=== PATIENT | female | born 1985 | race Caucasian/White ===

== ENCOUNTER 2016-08-08 15:59 | Emergency (ER) | payer MEDICAID, MEDICARE ==
[2016-08-08] MEDS ORDERED: Sodium Chloride 0.9% 10 ML Syringe FLUSH PRN (16:54)
[2016-08-08] MEDS ORDERED: Ketorolac 30 MG/ML SDV IVPUSH ONE (16:54)
[2016-08-08] MEDS ORDERED: diphenhydrAMINE 50 MG/ML SDV IVPUSH ONE (16:54)
[2016-08-08] MEDS ORDERED: Metoclopramide 10 MG/2 ML SDV IVPUSH ONE (16:55)
[2016-08-08] MEDS ORDERED: Acetaminophen 500 MG Tab PO ONE (16:56)
[2016-08-08] MEDS ORDERED: Sodium Chloride 0.9% 1,000 ML IV SCH (17:00)
[2016-08-08] MEDS ORDERED: Acetaminophen/HYDROcodone 325-5 MG Tab PO ONE (18:19)
[2016-08-08 18:58] VITALS: BP 106/62
--- NOTE | 2016-08-09 02:14 | ER ---
DATE SEEN: 08/08/2016 TIME SEEN: The patient was seen at 1630 hours. CHIEF COMPLAINT: Migraine. HISTORY OF PRESENT ILLNESS: The patient has onset of bifrontal parietal and also retro-orbital headache that feels like her eyes are "exploding and falling out," 7/10 intensity with associated hurting in her ears. She has had last CAT scan 2 years ago and she notes today she has onset with this headache, photophobia and phonophobia. She has headache that is not related to menses. She had her mother drive to the hospital for further evaluation. She tried Excedrin which usually takes her headache away, but did not. In the past, she has had hydrocodone, but "has not helped." On 08/05/2016, was seen at [facility] after she tripped and fell while attempting to step over a child gate which keeps the dog out of one of the bedrooms. She fell on her outstretched right hand and had an axial force hyperextension injury to right thumb and has additional right dorsum and wrist injury pain. She was at the [facility] on 08/08, they told her she has traumatic tendinitis and no medicine prescribed or x- rays were taken. The patient's last menstrual period was 07/19/2016. She is on control pills. She is a 1, para 1-0-0-1, single mother. REVIEW OF SYSTEMS: Negative, except she had gastritis a year ago. SOCIAL HISTORY: The patient smokes a half a pack of cigarettes a day. Denies alcohol or illicit drug use. PAST MEDICAL HISTORY: She denies diabetes, heart disease, high blood pressure, serious illness. She has mild asthma and uses albuterol MDI p.r.n. She has depression, takes sertraline 150 mg daily since 2013. REVIEW OF SYSTEMS: Otherwise, negative. PHYSICAL EXAMINATION: VITAL SIGNS: Blood pressure 111/56, heart rate 65, respirations 14, oxygen saturation 99%, temperature is 36.9 degrees centigrade. CONSTITUTIONAL: The patient is alert, has the lights off and is ill with moderate to severe headache. Her eyes are closed, but she opens them to my history taking and has good eye contact.. HEENT: Blepharospasm. PERRLA intact. Hearing is good. No facial dysesthesia. Face symmetry is normal. Gag appropriate. Pharynx negative. NECK: No thyromegaly or mass in neck. No cervical adenopathy. LUNGS: Clear to auscultation without rales, rhonchi, or wheezes. HEART: S1 and S2. No murmur. No irregular rate or rhythm. ABDOMEN: Soft. No guarding. No abdominal discomfort. Bowel sounds normal. No masses. No CVA percussion tenderness. NEURO: Deep tendon reflexes. Normoactive upper and lower extremities. Cranial nerves 2 through 12 intact. Oriented x3. Gait appropriate. She has marked photophobia and phonophobia. ASSESSMENT: PLAN: The patient treated with Reglan IV, Toradol 30 mg IV, Benadryl 50 mg IV, 1000 mL normal saline. Her headache has gone from 7 to a 6, "has not improved much." After we talked about the issues of opioid epidemic in this country and advised not to use opioids, she felt comfortable with the thought of going home, just getting rest and sleeping. However, not too long after that, she said asked if it would be okay for her to have some hydrocodone. She was given 8 tablets to work with. The patient dismissed to follow up with doctor in a week. Also, we discussed the new data suggests perhaps chronic propranolol therapy might diminish the next severe [id number] attack. She would liked the thought of trial of propranolol 50 mg daily to prevent the once a month sever headaches. Propranolol long-acting 50 mg was prescribed, she is advised if she has marked side effects to discontinue the medicine. She is to follow up with her doctor in a week. additional comment: after she got up, and went to greet and hold her daughter her whole disposition changed. She was more happy and animated than I would expect for a a "6/10 headache" than I would expect. Perhaps she had gotten more relief than she related. Perhaps the medicine had increased therapeutic effect after a longer time. Or perhaps there was a different secondary gain to having come to the ED. /[id number] CELINE/CASANDRA PARKER
--- NOTE | 2016-08-09 10:35 | CR ---
INDICATION: Fall, extended onto thumb, painful navicula. Pain mid arm and below. RIGHT FOREARM: Frontal and lateral views of the right forearm revealed no evidence of an acute fracture, dislocation, or other significant bone or joint abnormality. IMPRESSION: Normal right forearm. If abnormality is suspected at the wrist specifically, coned down views of the wrist may be helpful. MTDD
--- NOTE | 2016-09-09 05:26 | ER ---
DATE SEEN: 08/08/2016 ADDENDUM: DIAGNOSIS: Migraine headache. /[id number] CELINE/CASANDRA
== END 2016-08-08 18:31 | disposition home or self-care (01) ==
LOC: FB.ED 15:59
DX: G43.909 Migraine, unspecified, not intractable, without status migrainosus (principal); J45.909 Unspecified asthma, uncomplicated; F32.9 Major depressive disorder, single episode, unspecified
CPT/HCPCS: 73090; 96361; 96374; 96375; 99284; A9270; J1200; J1885; J2765; J7040; J7050

== ENCOUNTER 2016-12-18 23:06 | Emergency (ER) | payer MEDICAID, MEDICARE ==
[2016-12-18] MEDS ORDERED: Acetaminophen 1,000 MG in Premix Bag 1 BAG IV ONE (23:59)
[2016-12-19] MEDS ORDERED: Metoclopramide 10 MG/2 ML SDV IVPUSH ONE (00:02)
[2016-12-19] MEDS ORDERED: diphenhydrAMINE 50 MG/ML SDV IVPUSH ONE (00:03)
[2016-12-19] MEDS ORDERED: Ketorolac 30 MG/ML SDV IVPUSH ONE (00:08)
[2016-12-19] MEDS ORDERED: Sodium Chloride 0.9% 1,000 ML IV ONE (00:09)
[2016-12-19] MEDS ORDERED: methylPREDNISolone Sodium Succinate 125 MG/2 ML SDV IVPUSH ONE (00:14)
[2016-12-19 01:16] VITALS: BP 120/80
--- NOTE | 2016-12-19 11:50 | ER ---
DATE SEEN: 12/18/2016 The patient was seen at 2335 hours. HISTORY OF PRESENT ILLNESS: This 31-year-old, 1, para 1-0-0-1, smoker, had an onset at 1300 hours of a biparietal and bifrontal, 7/10, headache. This was associated with photophobia and phonophobia, nausea, vomiting 12 times, preceded by an aura of teichopsia - black dots 20 minutes before the headache. No paresis, sensory changes, or head trauma. She has past medical history of 3 brain surgeries, removed 4 ependymomas. She has tried Fioricet, hydrocodone, Tylenol, ibuprofen, Topamax, Toradol, venlafaxine, and tramadol without success. She has not tried amitriptyline or nortriptyline. The patient denies chemical dependency, occasionally uses alcohol, and does not use street drugs. No previous history of trauma, abuse. She has mild stress in her life. She notes that her balance is slightly abnormal because of her previous brain surgery. She uses hydrocodone one-half to 1 tablet as needed, but the hydrocodone did not decrease her headache today. Previous brain surgery was in 1998, 2000, and 2003. First 2 were at [facility] and the third surgery was at [place]. She also had a CVA before her for surgery and for 6 weeks had right eye dysconjugate gaze, right body hemiparesis, and right facial droop. She has asthma and depression. She is a smoker of half a pack to a pack of cigarettes per day. PAST MEDICAL HISTORY: As noted above. REVIEW OF SYSTEMS: HEENT: Negative. CARDIORESPIRATORY: Negative. GI and : Negative. NEURO: As noted above. MUSCULOSKELETAL: Negative. PSYCHIATRIC: Depression and anxiety. PHYSICAL EXAMINATION: VITAL SIGNS: Blood pressure 121/83, heart rate 88, respirations 16, oxygen saturation 100%, and temperature is 36 degrees centigrade. CONSTITUTIONAL: The patient is lying on her right side in a position, has the lights out, and is sensitive to sound and light. She is annoyed and bothered by the humming sound of the IV infusion machine. HEENT: Palpation of the scalp shows 2 linear frontal scalp lacerations that have healed. Hearing is appropriate. Pupils were equal, round, and reactive to light. She has marked sensitivity to light, I did not examine her eyes for that reason. Pharynx was without abnormality. No asymmetry of facial muscles or muscles of facial expression. NECK: Supple. No spinous process tenderness. Mild paraspinal muscle discomfort in the neck. LUNGS: Clear to auscultation without rales, rhonchi, or wheezes. HEART: S1, S2. No irregular rate and rhythm. ABDOMEN: Soft. No guarding. No abdominal discomfort. EXTREMITIES: Without abnormality. Deep tendon reflexes in upper and lower extremities symmetrical, 1 hypoactive. NEURO: Cranial nerves 2 through 12 intact. No upgoing toes. Babinski negative. Mild dysmetria. No pronator drift. EMERGENCY ROOM COURSE: The patient was treated with 1000 mL of normal saline flush, 60 mg of orphenadrine IV, Reglan 10 mg IV, Toradol 10 mg IV, Benadryl 50 mg IV, and Solu-Medrol 125 mg IV. She notes her headache went only down to a 5/10. However, she was sleeping most of the time in the ER. My appraisal at this time as well as the last visit I saw her is that she exaggerates her pain before she leaves. She was not prescribed any medications as she has medications to use at home. Follow up with a doctor in a week. DIAGNOSES: 1. Migraine headache. 2. Three ependymoma surgeries. 3. Depression. 4. Asthma. 5. Smoker, half a pack per day. 6. Cerebrovascular accident for 6 weeks before the first surgery at [facility] with associated right eye dysconjugate gaze, right body hemiparesis, and right lip droop. /[id number] CELINE/CASANDRA PARKER
== END 2016-12-19 01:40 | disposition home or self-care (01) ==
LOC: FB.ED 23:06
DX: G43.909 Migraine, unspecified, not intractable, without status migrainosus (principal); J45.909 Unspecified asthma, uncomplicated; F32.9 Major depressive disorder, single episode, unspecified; I69.951 Hemiplegia and hemiparesis following unspecified cerebrovascular disease affecting right dominant side; F17.210 Nicotine dependence, cigarettes, uncomplicated; Z98.890 Other specified postprocedural states
CPT/HCPCS: 96361; 96374; 96375; 99283; J0131; J1200; J1885; J2360; J2765; J2930; J7040

== ENCOUNTER 2017-01-28 18:25 | Emergency (ER) | payer MEDICAID, MEDICARE ==
[2017-01-28] MEDS ORDERED: fentaNYL 100 MCG/2 ML SDV IVPUSH ONE (19:12)
[2017-01-28] MEDS ORDERED: Iopamidol 755 Mg/ML 100 ML Bottle IV ONE (19:14)
[2017-01-28] MEDS ORDERED: Ondansetron 4 MG/2 ML SDV IVPUSH ONE (19:15)
[2017-01-28] MEDS ORDERED: Sodium Chloride 0.9% 1,000 ML IV SCH ×3 (19:15→22:10)
[2017-01-28] MEDS ORDERED: Acetaminophen 1,000 MG in Premix Bag 1 BAG IV ONE (20:37)
[2017-01-28] MEDS ORDERED: diphenhydrAMINE 50 MG/ML SDV IVPUSH ONE (20:37)
[2017-01-28] MEDS ORDERED: HYDROmorphone 2 MG/ML SDV IVPUSH ONE (21:22)
[2017-01-28] MEDS ORDERED: Metoclopramide 10 MG/2 ML SDV IVPUSH ONE (21:23)
[2017-01-28 23:04] VITALS: BP 104/64
--- NOTE | 2017-01-31 14:03 | ER ---
DATE SEEN: 01/28/2017 TIME SEEN: The patient was seen at 1830 hours. HISTORY OF PRESENT ILLNESS: The patient on 01/13/2017 was presented to the hospital in [place] for what was presumed to be cholecystitis. She has had ongoing right upper quadrant pain that radiates down to right lower quadrant, and on that day awoke with this pain and had nausea without emesis, was given medication shot at the ER and did not get better. She had past medical history of heartburn with reflux symptoms, but never had this terrible pain, and has not had any fatty or greasy food intolerance. No history of gallstones. No history of pancreatitis. No history of hepatitis. Ultrasound of the gallbladder at that time was a distended gallbladder, it was not thickened nor was there any pericholecystic fluid. She then went to CT with IV contrast and demonstrated dilated gallbladder, which was described as hydropic without ischemia. The diagnosis of acalculous cholecystitis secondary to distention of the gallbladder was entertained. She had multiple brain surgeries in the past at age 18, IUD placed on January 06, and the HUMAN RESOURCES DEPARTMENT SUPERVISOR checked this and found it had not perforated, it was not outside the uterus and was in appropriate position. The hospital staff at [place] said the etiology of the patient's findings was indeterminate but suggested acalculous cholecystitis. A HIDA scan was performed with CCK, and the HIDA scan showed no cystic duct obstruction, which Dr. Mead noted can be a false negative test, but with her persistent abdominal right upper quadrant pain for 48 hours, a cholecystectomy was recommended, and it was performed without complications. Intraoperatively, filmy adhesions to the gallbladder were noted per the surgeon. The gallbladder was removed en monty up to the 2 arteries, cystic artery and posterior artery from the samia hepatis were clipped. No bleeding was noted, and we rechecked the port site, and it demonstrates no abnormality on exit. Pathology reports demonstrated preop diagnoses of biliary colic, dyskinesia, and cholecystitis. There were 6 lobulated yellow calculi of approximately 3 mm in diameter. Gallbladder wall was soft and green, ranging in thickness to 1 to 3 mm; mucosa was green to velvety. No microscopic report was noted. Patient was driven by car, transferred to us from [place]. Today, she was in the emergency room at [place], and she was upset because they did not have any etiology for her pain. The [facility] chart noted the patient did not want "the fucking Toradol", the nurse tells the patient of Toradol and asked if the patient would like the injection, the patient said "that does not work". The nurse and I asked again if she would like the injection, she said "no." She exited the room and notified the MD of refusal of pain medicine, and at about 1705 hours she was noted to say "no, I want an ambulance to take me out of here." On 01/23/2017, she had a white count of 10,100 (4 days postop with a differential of PMNs 60, lymphs 32, and a lipase of 104 (23-300 normal). ALT was 29 on 01/23/2017 for the fourth postop day. Today her ALT is 126 (01/28/2017), and on 01/23/2017, her AST was 19, today her AST is 342 (01/28/2017 - 9 days postop). Bilirubin today is 0.9; on 01/23/2017, her bilirubin was 0.7. No evidence for jaundice. The patient currently denies coughing. Denies shortness of breath. Denies back pain, but she has right-sided chest pain, and she also has right upper quadrant pain, and she denies any leg pain or DVT history. MEDICATIONS: 1. Zoloft 100 mg daily. 2. Oxycodone 1 tablet q.4 hours p.r.n. ALLERGIES: Azithromycin, escitalopram, and sumatriptan. OTHER SIGNIFICANT MEDICAL HISTORY: Multiple brain surgeries since age 18 for brain tumors. Also, GERD. No history of diabetes, myocardial infarction, lung disease, heart disease, or kidney disease. EMERGENCY DEPARTMENT COURSE: IV was started. The patient was in such extreme pain I wondered if there was an issue of chemical dependency - she was asked to provide urine, she was unable to provide urine. She was given fentanyl 100 mg IV, Benadryl 50 mg IV, acetaminophen 1000 mg IV, and eventually before she left 2 mg hydrocodone IV and metoclopramide 10 mg IV. She received 2 L IV and third liter started before this transfer. PHYSICAL EXAMINATION: VITAL SIGNS: Blood pressure 93/62, heart rate 72, respirations 16, oxygen saturation 100%, and temperature 36.6 degrees centigrade. GENERAL: An alert woman who is in extensive pain. She is writhing with pain and moaning with pain, one of that was fabricated, but after more further evaluation, it appeared that this pain is zackary elle. HEENT: TMs negative. Pharynx without abnormality. Pharynx is dry. No cervical adenopathy. No thyromegaly. LUNGS: Clear to auscultation without rales, rhonchi, or wheezes. HEART: S1, S2. No irregular rate and rhythm. CHEST: The right chest is markedly painful to palpation and screamed at the palpation of ribs 8, 9, and 10, anterior axillary line and anterior midclavicular line. She has moderate right upper quadrant pain but less than her chest discomfort. There are no rubs in her lungs. No rales heard. ABDOMEN: Moderate discomfort, right upper quadrant and right subcostal ribs 8, 9, and 10. No masses palpable. The trocar site incisions are clean, it is not red and not erythematous. No CVA percussion tenderness. EXTREMITIES: Without abnormality. PELVIC: Not performed. RECTAL: Not performed. LABORATORY FINDINGS: Hemoglobin 13.9 and white count 13,100, PMNs 82, lymphs 13, monos 5, eosinophils 1. D-dimer 847. Troponin less than 0.01. Complete metabolic panel is normal except for the liver enzymes; AST 342, ALT 126, alkaline phosphatase 138. Sodium is normal at 140, potassium 4.2, chloride 105, CO2 of 26, BUN 10, creatinine 0.8, GFR greater than 60. BUN and creatinine ratio 12.5. Amylase 68. ASSESSMENT AND PLAN: I have discussed the patient with Dr. English. He suggested that there were several possibilities of etiology of the patient's pain. One, it could be a misplaced clip on the branch of the hepatic structures. It could be contusion and bruising of the gallbladder tree causing pain. It could be partial blockage of the gallbladder tree, but there is no suggestion of biliary leak because she did not have fluid in her abdomen with the CAT scan performed this evening. There is a trace of fluid in the perineum, but there is not a fluid mass around the biliary structures. He suggested perhaps she may need an ERCP or an MRCP. I also spoke to Dr. 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 He would not perform the ERCP, but says the MRCP is possible and accepted the patient. The patient has been accepted by the hospitalist, Dr. Angel, and Dr. Angel has been informed of the patient's status. Dr. Bauer noted that the outcome sometimes in these cases is very difficult and summarized that perhaps it would be a sphincter of Oddi issue, but he was not certain. Dr. Bauer will arrange for an MRCP. The patient is transferred by ambulance to [place]. She ultimately had 2 mg of Dilaudid and her loud cries of pain relented. She is much improved and still has pain. /[id number] CELINE/CASANDRA
== END 2017-01-28 22:20 ==
LOC: FB.ED 18:25
DX: R10.11 Right upper quadrant pain (principal); R07.81 Pleurodynia; Z88.1 Allergy status to other antibiotic agents; Z90.49 Acquired absence of other specified parts of digestive tract
CPT/HCPCS: 36415; 71260; 74177; 80053; 82150; 85025; 85379; 96361; 96374; 96375; 99285; J0131; J1170; J1200; J2405; J2765; J3010; J7040; Q9967

== ENCOUNTER 2017-02-03 19:43 | Emergency (ER) | payer MEDICAID, MEDICARE ==
[2017-02-03] MEDS ORDERED: Sodium Chloride 0.9% 1,000 ML IV ONE (20:39)
[2017-02-03] MEDS ORDERED: Ondansetron 4 MG/2 ML SDV IVPUSH ONE (20:41)
[2017-02-03] MEDS ORDERED: Ketorolac 30 MG/ML SDV IVPUSH ONE (20:42)
[2017-02-03] MEDS ORDERED: HYDROmorphone 2 MG/ML SDV IVPUSH ONE ×2 (20:47→21:48)
[2017-02-03] MEDS ORDERED: Sodium Chloride 0.9% 1,000 ML IV SCH (22:30)
--- NOTE | 2017-02-03 22:38 | EDM.PDOC ---
ED HPI GENERAL MEDICAL PROBLEM - General Chief Complaint: Abdominal Pain Stated Complaint: ABD PAIN Time Seen by Provider: 02/03/17 20:20 Source of Information: Reports: Patient, Family History Limitations: Reports: No Limitations - History of Present Illness INITIAL COMMENTS - FREE TEXT/NARRATIVE: Patient is a 31 year old woman who had a laparoscopic cholecystectomy on . On 01-28-17 she had severe RUQ abdominal pain and came here to the ED. She had a retained gallstone and was transfered to [facility]. She had an ERCP with removal of a retained stone yesterday and she was discharged home yesterday. This afternoon she again developed severe epigastric and RUQ abdominal pain worsened when laying down. She called [facility] and talked to Dr. Gates the juvenile court liaison barrer and tacker who told her to come here to be evaluated for pancreatitis. She has severe pain, nausea and dry heaves. No fever or chills. Onset: Today Onset Date: 02/03/17 Onset Time: 17:00 Duration: Hour(s): (5), Getting Worse Location: Reports: Abdomen, Radiates to (Back) Quality: Reports: Ache, Same as Previous Episode, Sharp, Stabbing Severity: Severe Improves with: Reports: None Worsens with: Reports: None Context: Reports: Other (Status Post ERCP yesterday.) Associated Symptoms: Reports: Nausea/Vomiting mid abdomen radiating to back Pain Score (Numeric/FACES): 9 - Related Data Allergies Allergy/AdvReac Type Severity Reaction Status Date / Time azithromycin Allergy Headache Verified 02/03/17 19:51 escitalopram [From Lexapro] Allergy Diarrhea Verified 02/03/17 19:51 filgrastim Allergy Hives Verified 02/03/17 19:52 sumatriptan [From Imitrex] Allergy Hives Verified 02/03/17 19:51 Home Meds: Home Meds Sertraline [Zoloft] 150 mg PO DAILY 01/28/17 [History] Nicotine [Habitrol] 21 mg .ROUTE Q24H 02/03/17 [History] Past Medical History Gastrointestinal History: Reports: Cholelithiasis EPILEPSY PHYSICIAN History: Reports: , Spontaneous Neurological History: Reports: Migraines, Other (See Below) Other Neuro History: brain tumors Psychiatric History: Reports: Depression Oncologic (Cancer) History: Reports: Brain, Other (See Below) Other Oncologic History: chemotherapy - Past Surgical History GI Surgical History: Reports: Cholecystectomy, ERCP Neurological Surgical History: Reports: Other (See Below) Social & Family History - Family History Family Medical History: Noncontributory - Tobacco Use Smoking Status *Q: Current Every Day Smoker Years of Tobacco use: 15 Packs/Tins Daily: 1.5 Second Hand Smoke Exposure: No - Caffeine Use Caffeine Use: Reports: Coffee - Recreational Drug Use Recreational Drug Use: No ED ROS GENERAL - Review of Systems Review Of Systems: See Below Constitutional: Reports: Decreased Appetite HEENT: Reports: No Symptoms Respiratory: Reports: No Symptoms Cardiovascular: Reports: No Symptoms Endocrine: Reports: No Symptoms GI/Abdominal: Reports: Abdominal Pain, Anorexia, Nausea, Vomiting : Reports: No Symptoms Musculoskeletal: Reports: No Symptoms Skin: Reports: No Symptoms Neurological: Reports: No Symptoms Psychiatric: Reports: No Symptoms Hematologic/Lymphatic: Reports: No Symptoms Immunologic: Reports: No Symptoms ED EXAM, GI/ABD - Physical Exam Exam: See Below Exam Limited By: No Limitations General Appearance: Alert, WD/WN, No Apparent Distress Eyes: Bilateral: Normal Appearance, EOMI Ears: Normal External Exam, Normal Canal, Hearing Grossly Normal, Normal TMs Nose: Normal Inspection, Normal Mucosa, No Blood Throat/Mouth: Normal Inspection, Normal Lips, Normal Teeth, Normal Gums, Normal Oropharynx, Normal Voice, No Airway Compromise Head: Atraumatic, Normocephalic Neck: Normal Inspection, Supple, Non-Tender, Full Range of Motion Respiratory/Chest: No Respiratory Distress, Lungs Clear, Normal Breath Sounds, No Accessory Muscle Use, Chest Non-Tender Cardiovascular: Normal Peripheral Pulses, Regular Rate, Rhythm, No Edema, No Gallop, No JVD, No Murmur, No Rub GI/Abdominal Exam: Guarding, Tender, Abnormal Bowel Sounds Back Exam: Normal Inspection, Full Range of Motion, Other (Pain radiates to the back) Extremities: Normal Inspection Neurological: Alert, Oriented, CN II-XII Intact, Normal Cognition, Normal Gait, Normal Reflexes, No Motor/Sensory Deficits Psychiatric: Normal Affect, Normal Mood Skin Exam: Warm, Dry, Intact, Normal Color, No Rash Lymphatic: No Adenopathy EKG INTERPRETATION EKG Date: 02/03/17 Rhythm: NSR [place]: Normal P-Wave: Present QRS: Normal ST-T: Normal QT: Normal Comparison: NA - No Prior EKG Course - Vital Signs Text/Narrative:: Uneventful ED course. She was found to have a pancreatitis by labs and she was given IV normal saline and IV Dilaudid along with IV Zofran which made her feel better. She will be transferred back to [facility] with Dr. Angel accepting her by ALS ambulance for further evaluation and treatment. Last Recorded V/S: Last Vital Signs Temp 36.4 C 02/03/17 19:43 Pulse 92 02/03/17 19:43 Resp 18 02/03/17 19:43 BP 135/102 H 02/03/17 19:43 Pulse Ox 100 02/03/17 19:43 - Orders/Labs/Meds Orders: Active Orders 24 hr Category Date Time Status URINALYSIS W/MICROSCOPIC [UA W/MICROSCOPIC] [URIN] Stat Lab 02/03/17 20:30 Uncollected Sodium Chloride 0.9% @ 150 MLS/HR (1000ml) Med 02/03/17 22:30 Ordered Sodium Chloride 0.9% [Normal Saline] 1,000 ml IV ASDIRECTED EKG 12 Lead [EK] Routine Ther 02/03/17 20:30 Ordered Medication Orders Sodium Chloride (Normal Saline) 1,000 mls @ 150 mls/hr IV ASDIRECTED DEMETRICE Labs: Laboratory Tests 02/03/17 02/03/17 02/03/17 Range/Units 20:30 20:30 20:30 WBC 9.1 (4.5-12.0) X10-3/uL RBC 4.23 (3.23-5.20) x10(6)uL Hgb 13.5 (11.5-15.5) g/dL Hct 39.7 (30.0-51.3) % MCV 93.8 (80-96) fL MCH 31.9 (27.7-33.6) pg MCHC 34.0 (32.2-35.4) g/dL RDW 13.0 (11.5-15.5) % Plt Count 419 H (125-369) X10(3)uL MPV 7.1 L (7.4-10.4) fL Neut % (Auto) 58.9 (46-82) % Lymph % (Auto) 33.5 (13-37) % Wheeler % (Auto) 4.7 (4-12) % Eos % (Auto) 2 (1.0-5.0) % Baso % (Auto) 1 (0-2) % Neut # (Auto) 5.4 (1.6-8.3) # Lymph # (Auto) 3.0 (0.6-5.0) # Wheeler # (Auto) 0.4 (0.0-1.3) # Eos # (Auto) 0.2 (0.0-0.8) # Baso # (Auto) 0.1 (0.0-0.2) # Sodium 139 (135-145) mmol/L Potassium 3.8 (3.5-5.3) mmol/L Chloride 104 (100-110) mmol/L Carbon Dioxide 31 H (23-29) mmol/L BUN 6 (5-20) mg/dL Creatinine 0.7 (0.6-1.3) mg/dL Est Cr Clr Drug Dosing 100.55 mL/min Estimated GFR (MDRD) > 60 (>60) BUN/Creatinine Ratio 8.6 L (9-20) Glucose 122 H (80-116) mg/dL Calcium 8.8 (8.6-10.2) mg/dL Total Bilirubin 0.2 (0.1-1.3) mg/dL AST 32 H D (5-27) IU/L ALT 109 H D (14-26) IU/L Alkaline Phosphatase 195 H (56-112) IU/L Troponin I < 0.01 L (0.02-0.06) NG/ML Total Protein 7.0 (6.0-8.0) g/dL Albumin 3.6 (3.5-5.2) g/dL Globulin 3.4 g/dL Albumin/Globulin Ratio 1.1 Amylase 84 (28-100) U/L Lipase 02/03/17 Range/Units 20:30 WBC (4.5-12.0) X10-3/uL RBC (3.23-5.20) x10(6)uL Hgb (11.5-15.5) g/dL Hct (30.0-51.3) % MCV (80-96) fL MCH (27.7-33.6) pg MCHC (32.2-35.4) g/dL RDW (11.5-15.5) % Plt Count (125-369) X10(3)uL MPV (7.4-10.4) fL Neut % (Auto) (46-82) % Lymph % (Auto) (13-37) % Wheeler % (Auto) (4-12) % Eos % (Auto) (1.0-5.0) % Baso % (Auto) (0-2) % Neut # (Auto) (1.6-8.3) # Lymph # (Auto) (0.6-5.0) # Wheeler # (Auto) (0.0-1.3) # Eos # (Auto) (0.0-0.8) # Baso # (Auto) (0.0-0.2) # Sodium (135-145) mmol/L Potassium (3.5-5.3) mmol/L Chloride (100-110) mmol/L Carbon Dioxide (23-29) mmol/L BUN (5-20) mg/dL Creatinine (0.6-1.3) mg/dL Est Cr Clr Drug Dosing mL/min Estimated GFR (MDRD) (>60) BUN/Creatinine Ratio (9-20) Glucose (80-116) mg/dL Calcium (8.6-10.2) mg/dL Total Bilirubin (0.1-1.3) mg/dL AST (5-27) IU/L ALT (14-26) IU/L Alkaline Phosphatase (56-112) IU/L Troponin I (0.02-0.06) NG/ML Total Protein (6.0-8.0) g/dL Albumin (3.5-5.2) g/dL Globulin g/dL Albumin/Globulin Ratio Amylase (28-100) U/L Lipase 470 Meds: Medications Generic Name Dose Route Start Last Admin Trade Name Freq PRN Reason Stop Dose Admin Sodium Chloride 1,000 mls @ 150 mls/hr 02/03/17 22:30 Normal Saline IV ASDIRECTED DEMETRICE Discontinued Medications Generic Name Dose Route Start Last Admin Trade Name Freq PRN Reason Stop Dose Admin Hydromorphone HCl 0.5 mg 02/03/17 20:47 02/03/17 21:03 Dilaudid IVPUSH 02/03/17 20:48 0.5 mg ONETIME ONE Administration Hydromorphone HCl 1 mg 02/03/17 21:48 02/03/17 22:23 Dilaudid IVPUSH 02/03/17 21:49 1 mg ONETIME ONE Administration Sodium Chloride 1,000 mls @ 999 mls/hr 02/03/17 20:39 02/03/17 21:01 Normal Saline IV 02/03/17 21:39 999 mls/hr .BOLUS ONE Administration Ketorolac Tromethamine 30 mg 02/03/17 20:42 Toradol IVPUSH 02/03/17 20:43 ONETIME ONE Ondansetron HCl 4 mg 02/03/17 20:41 02/03/17 21:02 Zofran IVPUSH 02/03/17 20:42 4 mg ONETIME ONE Administration Departure - Departure Time of Disposition: 22:44 Disposition: DC/Tfer to Acute Hospital 02 Condition: Fair Clinical Impression: Pancreatitis, gallstone - Discharge Information Referrals: Robin Jimenez MD [Primary Care Provider] - - My Orders Last 24 Hours: My Active Orders 02/03/17 20:30 URINALYSIS W/MICROSCOPIC [UA W/MICROSCOPIC] [URIN] Stat EKG 12 Lead [EK] Routine 02/03/17 22:30 Sodium Chloride 0.9% @ 150 MLS/HR (1000ml) Sodium Chloride 0.9% [Normal Saline] 1,000 ml IV ASDIRECTED - Assessment/Plan Last 24 Hours: My Active Orders 02/03/17 20:30 URINALYSIS W/MICROSCOPIC [UA W/MICROSCOPIC] [URIN] Stat EKG 12 Lead [EK] Routine 02/03/17 22:30 Sodium Chloride 0.9% @ 150 MLS/HR (1000ml) Sodium Chloride 0.9% [Normal Saline] 1,000 ml IV ASDIRECTED
[2017-02-03 23:31] VITALS: BP 116/64
== END 2017-02-03 23:30 ==
LOC: FB.ED 19:43
DX: K85.10 Biliary acute pancreatitis without necrosis or infection (principal); F32.9 Major depressive disorder, single episode, unspecified; F17.210 Nicotine dependence, cigarettes, uncomplicated; Z79.899 Other long term (current) drug therapy; Z90.49 Acquired absence of other specified parts of digestive tract; Z88.1 Allergy status to other antibiotic agents; Z88.8 Allergy status to other drugs, medicaments and biological substances
CPT/HCPCS: 36415; 80053; 82150; 83690; 84484; 85025; 93005; 96361; 96374; 96375; 96376; 99284; J1170; J2405; J7040; 99285

== ENCOUNTER 2017-08-07 02:03 | Emergency (ER) | payer MEDICAID, MEDICARE ==
[2017-08-07] MEDS ORDERED: HYDROmorphone 2 MG/ML SDV IM ONE (02:41)
[2017-08-07] MEDS ORDERED: Ketorolac 60 MG/2 ML SDV IM ONE (02:42)
[2017-08-07] MEDS ORDERED: Ondansetron 4 MG/2 ML SDV IM ONE (02:42)
--- NOTE | 2017-08-07 02:48 | EDM.PDOC ---
ED HPI GENERAL MEDICAL PROBLEM - General Chief Complaint: Headache Stated Complaint: MIGRAINE Time Seen by Provider: 08/07/17 02:43 Source of Information: Reports: Patient History Limitations: Reports: No Limitations - History of Present Illness INITIAL COMMENTS - FREE TEXT/NARRATIVE: Complains of right sided headache x 14 hours, typical presentation, associated with N/V and photophobia. Onset Date: 08/06/17 Onset Time: 12:00 Duration: Hour(s): (14) Location: Reports: Head (right sided) Treatments CARDIOLOGY CONSULTANT: Reports: Other Medication(s) - Related Data Allergies Allergy/AdvReac Type Severity Reaction Status Date / Time No Known Allergies Allergy Verified 08/07/17 02:22 Home Meds: Home Meds Butalb/Acetaminophen/Caffeine [Nugkxv-Fsnnpigz-Ivpe 50-300-40] 1 each PO Q4H PRN 08/07/17 [History] Hydrocodone/Acetaminophen [Echo 10-325 Tablet] 1 each PO Q4H PRN 08/07/17 [ History] Ondansetron [Zofran ODT] 4 mg PO Q6H PRN 08/07/17 [History] Past Medical History Gastrointestinal History: Reports: Cholelithiasis 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 COORDINATOR History: Reports: , Spontaneous Neurological History: Reports: Migraines, Other (See Below) (Ependymoma excision x 4) Other Neuro History: brain tumors Psychiatric History: Reports: Depression Oncologic (Cancer) History: Reports: Brain, Other (See Below) Other Oncologic History: chemotherapy - Past Surgical History GI Surgical History: Reports: Cholecystectomy, ERCP Neurological Surgical History: Reports: Other (See Below) Social & Family History - Family History Family Medical History: Noncontributory - Tobacco Use Smoking Status *Q: Current Every Day Smoker Tobacco Use Within Last Twelve Months: Cigarettes Years of Tobacco use: 10 Packs/Tins Daily: 0.5 Second Hand Smoke Exposure: No - Caffeine Use Caffeine Use: Reports: Coffee, Soda - Alcohol Use Alcohol Use History: No - Recreational Drug Use Recreational Drug Use: No ED ROS GENERAL - Review of Systems Review Of Systems: See Below Constitutional: Reports: No Symptoms HEENT: Reports: No Symptoms Respiratory: Reports: No Symptoms Cardiovascular: Reports: No Symptoms Endocrine: Reports: No Symptoms GI/Abdominal: Reports: Nausea, Vomiting : Reports: No Symptoms Musculoskeletal: Reports: No Symptoms Skin: Reports: No Symptoms Neurological: Reports: Headache Psychiatric: Reports: No Symptoms Hematologic/Lymphatic: Reports: No Symptoms Immunologic: Reports: No Symptoms - Physical Exam Exam: See Below Exam Limited By: No Limitations General Appearance: Alert, WD/WN, No Apparent Distress Eye Exam: Bilateral Eye: EOMI, PERRL Ears: Normal External Exam Nose: Normal Inspection Throat/Mouth: No Airway Compromise Head Exam: Atraumatic, Normocephalic Neck: Supple Respiratory/Chest: No Respiratory Distress (Female) Exam: Deferred Rectal (Female) Exam: Deferred Neuro Exam (Abbreviated): Alert, Oriented, Normal Cognition, Normal Gait, No Motor/Sensory Deficits Back Exam: Full Range of Motion Extremities: Normal Inspection, Normal Range of Motion Psychiatric: Normal Affect, Normal Mood Skin Exam: Warm, Dry, Intact Course - Vital Signs Last Recorded V/S: Last Vital Signs Temp 36.6 C 08/07/17 02:25 Pulse Resp 16 08/07/17 02:25 BP 124/70 08/07/17 02:25 Pulse Ox 100 08/07/17 02:25 - Orders/Labs/Meds Meds: Medications Discontinued Medications Generic Name Dose Route Start Last Admin Trade Name Freq PRN Reason Stop Dose Admin Hydromorphone HCl 1 mg 08/07/17 02:41 08/07/17 03:01 Dilaudid IM 08/07/17 02:42 1 mg ONETIME ONE Administration Ketorolac Tromethamine 60 mg 08/07/17 02:42 08/07/17 03:00 Toradol IM 08/07/17 02:43 60 mg ONETIME ONE Administration Ondansetron HCl 4 mg 08/07/17 02:42 08/07/17 03:02 Zofran IM 08/07/17 02:43 4 mg ONETIME ONE Administration - Re-Assessments/Exams Free Text/Narrative Re-Assessment/Exam: 08/07/17 03:22 Patient reports improvement of symptoms after Dilaudid 1mg IM, Toradol 60mg IM and Zofran 4mg IM. Departure - Departure Time of Disposition: : Disposition: Home, Self-Care 01 Condition: Good Clinical Impression: Migraine - Discharge Information Instructions: Migraine Headache, [id number] Referrals: Robin Jimenez MD [Primary Care Provider] - Forms: ED Department Discharge - Problem List & Annotations (1) Migraine SNOMED Code(s): 49416103 Code(s): G43.909 - MIGRAINE, UNSP, NOT INTRACTABLE, WITHOUT STATUS MIGRAINOSUS Status: Acute Priority: Medium Current Visit: Yes - Problem List Review Problem List Initiated/Reviewed/Updated: Yes
[2017-08-07 03:29] VITALS: BP 112/65
== END 2017-08-07 03:35 | disposition home or self-care (01) ==
LOC: FB.ED 02:03
DX: G43.909 Migraine, unspecified, not intractable, without status migrainosus (principal); F17.210 Nicotine dependence, cigarettes, uncomplicated; Z79.899 Other long term (current) drug therapy
CPT/HCPCS: 96372; 99282; 99283; J1170; J1885; J2405

== ENCOUNTER 2018-04-30 21:26 | Emergency (ER) | payer MEDICARE ==
[2018-04-30] MEDS ORDERED: Sodium Chloride 0.9% 1,000 ML IV ONE (21:44)
[2018-04-30] MEDS ORDERED: Ondansetron 4 MG/2 ML SDV IVPUSH ONE (21:44)
[2018-04-30] MEDS ORDERED: Dexamethasone 4 MG/ML SDV IVPUSH ONE (21:44)
[2018-04-30] MEDS ORDERED: Ketorolac 30 MG/ML SDV IVPUSH ONE (21:44)
[2018-04-30] MEDS ORDERED: Sodium Chloride 0.9% 10 ML Syringe FLUSH PRN (21:45)
[2018-04-30] MEDS ORDERED: SUMAtriptan 6 MG/0.5 ML SDV SUBCUT ONE (21:53)
--- NOTE | 2018-04-30 23:04 | EDM.PDOC ---
ED HPI GENERAL MEDICAL PROBLEM - General Chief Complaint: Headache Stated Complaint: MIGRAINE Time Seen by Provider: 04/30/18 21:26 Source of Information: Reports: Patient, Family History Limitations: Reports: No Limitations - History of Present Illness INITIAL COMMENTS - FREE TEXT/NARRATIVE: 32 y.o.w.ely came to the ed with her mom due to her typical migraine H/A. No trauma. Pt feels nauseated, at first she said imitrex is ok, the she said, she is allergic to it. No trauma. Head hurts all over. Denies . No other acute medical issues. BP 115/65 RR 16 Pulse 76 RR 18 Pulse 67 Temp 36.9 Onset: Unknown/Unsure Onset Date: 04/19/18 Onset Time: 09:00 Duration: Intermittent Location: Reports: Head Quality: Reports: Ache, Dull, Pressure, Same as Previous Episode Severity: Moderate Improves with: Reports: None Worsens with: Reports: None Context: Reports: Other (H/O Migraine H/A) Associated Symptoms: Reports: Other (nausea) Treatments SENIOR DATA MINING ANALYST: Reports: Acetaminophen, NSAIDS, Other (see below) Other Treatments SENIOR DATA MINING ANALYST: fiorcet - Related Data Allergies Allergy/AdvReac Type Severity Reaction Status Date / Time No Known Allergies Allergy Verified 04/30/18 21:39 Home Meds: Home Meds NK [No Known Home Meds] 04/30/18 [History] Past Medical History Gastrointestinal History: Reports: Cholelithiasis 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 History: Reports: , Spontaneous Neurological History: Reports: Migraines, Other (See Below) Other Neuro History: brain tumors Psychiatric History: Reports: Depression Oncologic (Cancer) History: Reports: Brain, Other (See Below) Other Oncologic History: chemotherapy - Past Surgical History GI Surgical History: Reports: Cholecystectomy, ERCP Neurological Surgical History: Reports: Other (See Below) Other Neurological Surgeries/Procedures: states "removal of brain tumors followed by radiation and chemo" Social & Family History - Family History Family Medical History: Noncontributory - Tobacco Use Smoking Status *Q: Current Every Day Smoker Years of Tobacco use: 20 Packs/Tins Daily: 1 - Caffeine Use Caffeine Use: Reports: Coffee - Recreational Drug Use Recreational Drug Use: No ED ROS GENERAL - Review of Systems Review Of Systems: See Below Constitutional: Reports: No Symptoms HEENT: Reports: No Symptoms Respiratory: Reports: No Symptoms Cardiovascular: Reports: No Symptoms Endocrine: Reports: No Symptoms GI/Abdominal: Reports: No Symptoms : Reports: No Symptoms Musculoskeletal: Reports: No Symptoms Skin: Reports: No Symptoms Neurological: Reports: Headache Psychiatric: Reports: No Symptoms Hematologic/Lymphatic: Reports: No Symptoms Immunologic: Reports: No Symptoms - Physical Exam Exam: See Below Exam Limited By: No Limitations General Appearance: Alert, WD/WN, Mild Distress, Moderate Distress Eye Exam: Bilateral Eye: Normal Inspection Ears: Normal External Exam Nose: Normal Inspection, Normal Mucosa, No Blood Throat/Mouth: Normal Inspection, Normal Lips, Normal Voice, No Airway Compromise Head Exam: Atraumatic, Normocephalic Neck: Normal Inspection, Supple, Non-Tender, Full Range of Motion Respiratory/Chest: No Respiratory Distress, Lungs Clear, Normal Breath Sounds, Chest Non-Tender Cardiovascular: Normal Peripheral Pulses, Regular Rate, Rhythm, No Edema, No Gallop, No JVD, No Murmur, No Rub GI/Abdominal: Normal Bowel Sounds, Soft, Non-Tender, No Organomegaly, No Abnormal Bruit, No Mass, Pelvis Stable (Female) Exam: Deferred Rectal (Female) Exam: Deferred Neuro Exam (Abbreviated): Alert, Oriented, CN II-XII Intact, Normal Cognition, Normal Gait, No Motor/Sensory Deficits Back Exam: Normal Inspection Extremities: Normal Inspection, Normal Range of Motion, Non-Tender, No Pedal Edema Psychiatric: Normal Affect, Normal Mood Skin Exam: Warm, Dry, Intact, Normal Color, No Rash Course - Vital Signs Text/Narrative:: 32 y.o.w.f came to the ed with her mom due to her typical migraine H/A. No trauma. Pt feels nauseated, at first she said imitrex is ok, the she said, she is allergic to it. No trauma. Head hurts all over. Denies . No other acute medical issues. BP 115/65 RR 16 Pulse 76 RR 18 Pulse 67 Temp 36.9 PE: WNWD W F with H/A, not the worst headache ever Labs: Not indiated, Imaging: not indicated Impression: Tesiom vs Migraine H/A Tx: Toradol, Decdron, Zofran Reexam: pain and nausea improved Plan: D/C with instructions Last Recorded V/S: Last Vital Signs Temp 36.6 C 04/30/18 22:45 Pulse 60 04/30/18 22:45 Resp 16 04/30/18 22:45 BP 111/60 04/30/18 22:45 Pulse Ox 99 04/30/18 22:45 - Orders/Labs/Meds Orders: Active Orders 24 hr Category Date Time Status Peripheral IV Insertion Adult [OM.PC] Routine Oth 04/30/18 21:45 Ordered Meds: Medications Discontinued Medications Generic Name Dose Route Start Last Admin Trade Name Topher PRN Reason Stop Dose Admin Dexamethasone 10 mg 04/30/18 21:44 04/30/18 22:09 Dexamethasone IVPUSH 04/30/18 21:45 10 mg ONETIME ONE Administration Sodium Chloride 1,000 mls @ 999 mls/hr 04/30/18 21:44 04/30/18 21:45 Normal Saline IV 04/30/18 22:44 999 mls/hr .BOLUS ONE Administration Ketorolac Tromethamine 30 mg 04/30/18 21:44 04/30/18 22:09 Toradol IVPUSH 04/30/18 21:45 30 mg ONETIME ONE Administration Ondansetron HCl 8 mg 04/30/18 21:44 04/30/18 21:50 Zofran IVPUSH 04/30/18 21:45 8 mg ONETIME ONE Administration Sodium Chloride 10 ml 04/30/18 21:45 04/30/18 21:45 Saline Flush FLUSH 10 ml ASDIRECTED PRN Administration Keep Vein Open Sumatriptan Succinate 6 mg 04/30/18 21:53 04/30/18 22:02 Imitrex SUBCUT 04/30/18 21:54 Not Given ONETIME ONE Departure - Departure Time of Disposition: 23:02 Disposition: Home, Self-Care 01 Condition: Good Clinical Impression: Tension headache - Discharge Information Instructions: Migraine Headache Referrals: Robin Jimenez MD [Primary Care Provider] - Forms: ED Department Discharge Additional Instructions: Please cont your meds, please f/u with your PMD, come back if your symptoms get worse acutely - My Orders Last 24 Hours: My Active Orders 04/30/18 21:45 Peripheral IV Insertion Adult [OM.PC] Routine - Assessment/Plan Last 24 Hours: My Active Orders 04/30/18 21:45 Peripheral IV Insertion Adult [OM.PC] Routine
[2018-04-30 23:35] VITALS: BP 111/60
== END 2018-04-30 23:10 | disposition home or self-care (01) ==
LOC: FB.ED 21:26
DX: G44.209 Tension-type headache, unspecified, not intractable (principal); F17.210 Nicotine dependence, cigarettes, uncomplicated
CPT/HCPCS: 96361; 96374; 96375; 99283; J1100; J1885; J2405; J7030

== ENCOUNTER 2018-07-04 23:41 | Emergency (ER) | payer MEDICARE ==
--- NOTE | 2018-07-05 00:36 | EDM.PDOC ---
ED HPI GENERAL MEDICAL PROBLEM - General Chief Complaint: Headache Stated Complaint: migraine Time Seen by Provider: 07/05/18 00:35 Source of Information: Reports: Patient, Family - History of Present Illness INITIAL COMMENTS - FREE TEXT/NARRATIVE: Headache x a few hours.,sudden onset.Characteristic of her previous migraine headaches. Associated with nausea. Has tried Gabapentin,and OTC meds with no relief.Endorses nausea,photosensitivity. 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: , Spontaneous Neurological History: Reports: Migraines, Other (See Below) Other Neuro History: brain tumors Psychiatric History: Reports: Depression Oncologic (Cancer) History: Reports: Brain, Other (See Below) Other Oncologic History: chemotherapy - Past Surgical History GI Surgical History: Reports: Cholecystectomy, ERCP Neurological Surgical History: Reports: Other (See Below) Other Neurological Surgeries/Procedures: states "removal of brain tumors followed by radiation and chemo" Social & Family History - Family History Family Medical History: Noncontributory - Caffeine Use Caffeine Use: Reports: Coffee ED ROS GENERAL - Review of Systems Review Of Systems: ROS reveals no pertinent complaints other than HPI. - Physical Exam Exam: See Below Text/Narrative:: In a dark room Exam Limited By: No Limitations General Appearance: Alert, WD/WN Head Exam: Atraumatic Course - Vital Signs Last Recorded V/S: Last Vital Signs Temp 96.1 F 07/04/18 23:55 Pulse 75 07/04/18 23:55 Resp 16 07/04/18 23:55 BP 121/63 07/04/18 23:55 Pulse Ox 100 07/04/18 23:55 - Orders/Labs/Meds Meds: Medications Discontinued Medications Generic Name Dose Route Start Last Admin Trade Name Freq PRN Reason Stop Dose Admin Diphenhydramine HCl 50 mg 07/05/18 00:34 07/05/18 00:40 Benadryl IM 07/05/18 00:35 50 mg ONETIME ONE Administration Ketorolac Tromethamine 60 mg 07/05/18 00:34 07/05/18 00:40 Toradol IM 07/05/18 00:35 60 mg ONETIME ONE Administration Metoclopramide HCl 10 mg 07/05/18 00:34 07/05/18 00:40 Reglan IM 07/05/18 00:35 10 mg ONETIME ONE Administration Departure - Departure Time of Disposition: 00:36 Disposition: Home, Self-Care 01 Condition: Good Clinical Impression: Migraine Migraine Qualifiers: Migraine type: without aura Status migrainosus presence: without status migrainosus Intractability: not intractable Qualified Code(s): G43.009 - Migraine without aura, not intractable, without status migrainosus - Discharge Information Referrals: Robin Jimenez MD [Primary Care Provider] - Forms: ED Department Discharge - Problem List & Annotations (1) Migraine SNOMED Code(s): 14136730 Code(s): G43.909 - MIGRAINE, UNSP, NOT INTRACTABLE, WITHOUT STATUS MIGRAINOSUS Status: Acute Priority: Medium - Problem List Review Problem List Initiated/Reviewed/Updated: Yes - Assessment/Plan Plan: IM Ketoralac,Reglan and Vistaril. Recommed follow up with PCP in 1-2. Return to ED prn
[2018-07-05] MEDS: diphenhydrAMINE 50 MG/ML SDV IM ONE (00:40)
[2018-07-05] MEDS: Metoclopramide 10 MG/2 ML SDV IM ONE (00:40)
[2018-07-05] MEDS: Ketorolac 60 MG/2 ML SDV IM ONE (00:40)
[2018-07-05 01:31] VITALS: BP 121/63
== END 2018-07-05 00:50 | disposition home or self-care (01) ==
LOC: FB.ED 23:41
DX: G43.009 Migraine without aura, not intractable, without status migrainosus (principal); Z88.8 Allergy status to other drugs, medicaments and biological substances
CPT/HCPCS: 96372; 99283-25; J1200; J1885; J2765

== ENCOUNTER 2018-07-24 20:03 | Emergency (ER) | payer MEDICARE ==
[2018-07-24] MEDS: diphenhydrAMINE 50 MG/ML SDV IVPUSH ONE ×2 (20:38→20:51)
[2018-07-24] MEDS: Ketorolac 30 MG/ML SDV IVPUSH ONE ×2 (20:38→20:51)
[2018-07-24] MEDS: Metoclopramide 10 MG/2 ML SDV IVPUSH ONE ×2 (20:38→20:51)
--- NOTE | 2018-07-24 21:13 | EDM.PDOC ---
ED HPI GENERAL MEDICAL PROBLEM - General Chief Complaint: Back Pain or Injury Stated Complaint: MIGRAINE HEADACHE WITH BACK PAIN Time Seen by Provider: 07/24/18 20:25 Source of Information: Reports: Patient, EMS, Old Records History Limitations: Reports: No Limitations - History of Present Illness INITIAL COMMENTS - FREE TEXT/NARRATIVE: Sindhu comes into [facility] ED by EMS with reported relapse of migraine headache today, followed by midline back pain radiating into the lower back. There is no weakness or loss of sensation, and she has been able to ambulate. The headache is global and throbbing, unimproved with home medication including Hydrocodone. She was last seen for migraine headache here on July 04. - Related Data Allergies Allergy/AdvReac Type Severity Reaction Status Date / Time sumatriptan [From Imitrex] Allergy Rash Verified 07/24/18 20:19 Home Meds: Home Meds Butalb/Acetaminophen/Caffeine [Efwknp-Ohyelzzg-Jaou 50-325-40] 1 tab PO TID 12/04 [History] Hydrocodone/Acetaminophen [Hydrocodon-Acetaminophn 10-325] 1 tab PO Q6HR PRN 12/04 [History] Ondansetron [Zofran ODT] 4 mg PO Q6HR PRN 07/24/18 [History] Past Medical History Respiratory History: Reports: Other (See Below) Other Respiratory History: smoker 1 pack/day for 10 years. Gastrointestinal History: Reports: Cholelithiasis PIE CHEF History: Reports: , Spontaneous Neurological History: Reports: Migraines, Other (See Below) Other Neuro History: brain tumors Psychiatric History: Reports: Depression Oncologic (Cancer) History: Reports: Brain, Other (See Below) Other Oncologic History: chemotherapy - Past Surgical History GI Surgical History: Reports: Cholecystectomy, ERCP Neurological Surgical History: Reports: Other (See Below) Other Neurological Surgeries/Procedures: states "removal of brain tumors followed by radiation and chemo" Social & Family History - Family History Family Medical History: Noncontributory - Caffeine Use Caffeine Use: Reports: Coffee ED ROS GENERAL - Review of Systems Review Of Systems: See Below Constitutional: Reports: No Symptoms HEENT: Reports: No Symptoms Respiratory: Reports: No Symptoms Cardiovascular: Reports: No Symptoms Endocrine: Reports: No Symptoms GI/Abdominal: Reports: No Symptoms : Reports: No Symptoms Musculoskeletal: Reports: Back Pain Skin: Reports: No Symptoms Neurological: Reports: Headache Psychiatric: Reports: Anxiety, Mood Lability Hematologic/Lymphatic: Reports: No Symptoms Immunologic: Reports: No Symptoms - Physical Exam Exam: See Below Course - Vital Signs Text/Narrative:: Treatment was offered to Ms. Love with Toradol, Benadryl, and Reglan. Patient refused this treatment, requesting narcotic treatment that were denied. Patient signed out AMA, walking out of the ED department without any assistance. Last Recorded V/S: Last Vital Signs Temp 36.8 C 07/24/18 20:15 Pulse 117 H 07/24/18 20:15 Resp 16 07/24/18 20:15 BP 92/52 L 07/24/18 20:15 Pulse Ox 99 07/24/18 20:15 - Orders/Labs/Meds Meds: Medications Discontinued Medications Generic Name Dose Route Start Last Admin Trade Name Nicholasq PRN Reason Stop Dose Admin Diphenhydramine HCl 50 mg 07/24/18 20:32 07/24/18 20:51 Benadryl IVPUSH 07/24/18 20:33 Not Given ONETIME ONE Ketorolac Tromethamine 30 mg 07/24/18 20:32 07/24/18 20:51 Toradol IVPUSH 07/24/18 20:33 Not Given ONETIME ONE Metoclopramide HCl 10 mg 07/24/18 20:32 07/24/18 20:51 Reglan IVPUSH 07/24/18 20:33 Not Given ONETIME ONE Departure - Departure Time of Disposition: 21:00 Disposition: Against Medical Advice 07 Condition: Fair Clinical Impression: Migraine Back pain Qualifiers: Back pain location: low back pain Chronicity: unspecified Back pain laterality : midline Sciatica presence: without sciatica Qualified Code(s): M54.5 - Low back pain - Discharge Information *PRESCRIPTION DRUG MONITORING PROGRAM REVIEWED*: No *COPY OF PRESCRIPTION DRUG MONITORING REPORT IN PATIENT [place]: No Referrals: PCP,None [Primary Care Provider] - - Problem List & Annotations (1) Migraine SNOMED Code(s): 26561663 Code(s): G43.909 - MIGRAINE, UNSP, NOT INTRACTABLE, WITHOUT STATUS MIGRAINOSUS Status: Acute Current Visit: No Qualifiers: Migraine type: without aura Status migrainosus presence: without status migrainosus Intractability: not intractable Qualified Code(s): G43.009 - Migraine without aura, not intractable, without status migrainosus (2) Back pain SNOMED Code(s): 603811808 Code(s): M54.9 - DORSALGIA, UNSPECIFIED Status: Acute Current Visit: Yes - Problem List Review Problem List Initiated/Reviewed/Updated: Yes - Assessment/Plan Plan: Follow up with PCP.
[2018-07-25 00:57] VITALS: BP 110/41
== END 2018-07-24 21:02 | disposition left against medical advice (07) ==
LOC: FB.ED 20:03
DX: G43.909 Migraine, unspecified, not intractable, without status migrainosus (principal); M54.5 Low back pain; F32.9 Major depressive disorder, single episode, unspecified
CPT/HCPCS: 99283; J1200; J1885; J2765

== ENCOUNTER 2018-08-02 00:46 | Emergency (ER) | payer MEDICARE ==
--- NOTE | 2018-08-02 01:07 | EDM.PDOC ---
ED HPI GENERAL MEDICAL PROBLEM - General Chief Complaint: Headache Stated Complaint: HEAD PAIN Time Seen by Provider: 08/02/18 01:02 Source of Information: Reports: Patient History Limitations: Reports: No Limitations - History of Present Illness INITIAL COMMENTS - FREE TEXT/NARRATIVE: 32 yo female with an occipital headache for 1 week.Severe pounding pain,like a sledge hammer. Nothing is helping. Has been to the ED x4 in the week due to it. Saw a neurologist on Tuesday at [facility],a diagnosis of Occipital Neuralgia was entertained,and injections given to the headache area. Not helping.I ti associated with nausea,and light sensitivity. No fever Occipital headache Pain Score (Numeric/FACES): 10 - Related Data Allergies Allergy/AdvReac Type Severity Reaction Status Date / Time sumatriptan [From Imitrex] Allergy Rash Verified 08/02/18 01:30 Home Meds: Home Meds Butalb/Acetaminophen/Caffeine [Rgqddq-Lxspblvx-Oimk 50-325-40] 1 tab PO TID 12/04 [History] Hydrocodone/Acetaminophen [Hydrocodon-Acetaminophn 10-325] 1 tab PO Q6HR PRN 12/04 [History] Ondansetron [Zofran ODT] 4 mg PO Q6HR PRN 07/24/18 [History] Past Medical History Respiratory History: Reports: Other (See Below) Other Respiratory History: smoker 1 pack/day for 10 years. Gastrointestinal History: Reports: Cholelithiasis BLIND ESCORT History: Reports: , Spontaneous Neurological History: Reports: Migraines, Other (See Below) Other Neuro History: brain tumors. Occipital neuralgia Psychiatric History: Reports: Depression Oncologic (Cancer) History: Reports: Brain, Other (See Below) Other Oncologic History: chemotherapy - Past Surgical History GI Surgical History: Reports: Cholecystectomy, ERCP Neurological Surgical History: Reports: Other (See Below) Other Neurological Surgeries/Procedures: states "removal of brain tumors followed by radiation and chemo" Social & Family History - Family History Family Medical History: Noncontributory - Tobacco Use Smoking Status *Q: Current Every Day Smoker Years of Tobacco use: 15 Packs/Tins Daily: 0.3 - Caffeine Use Caffeine Use: Reports: Soda - Recreational Drug Use Recreational Drug Use: No ED ROS GENERAL - Review of Systems Review Of Systems: ROS reveals no pertinent complaints other than HPI. - Physical Exam Exam: See Below Exam Limited By: No Limitations General Appearance: Alert, WD/WN Ears: Normal External Exam Nose: Normal Inspection Throat/Mouth: Normal Inspection Head Exam: Atraumatic, Normocephalic, Scalp Tenderness Neck: Normal Inspection, Tender Midline. No: Limited Range of Motion Neuro Exam (Abbreviated): Alert, Oriented Psychiatric: Tearful Skin Exam: Warm Course - Vital Signs Last Recorded V/S: Last Vital Signs Temp 98.1 F 08/02/18 02:09 Pulse 105 H 08/02/18 02:09 Resp 18 08/02/18 02:09 BP 117/65 08/02/18 02:09 Pulse Ox 98 08/02/18 02:09 - Orders/Labs/Meds Meds: Medications Discontinued Medications Generic Name Dose Route Start Last Admin Trade Name Freq PRN Reason Stop Dose Admin Diphenhydramine HCl 50 mg 08/02/18 01:02 08/02/18 01:53 Benadryl IVPUSH 08/02/18 01:03 50 mg ONETIME ONE Administration Hydromorphone HCl 2 mg 08/02/18 01:01 08/02/18 01:15 Dilaudid IVPUSH 08/02/18 01:02 2 mg ONETIME ONE Administration Sodium Chloride 1,000 mls @ 999 mls/hr 08/02/18 01:15 08/02/18 01:10 Normal Saline IV 999 mls/hr ASDIRECTED DEMETRICE Administration Metoclopramide HCl 10 mg 08/02/18 01:02 08/02/18 01:13 Reglan IVPUSH 08/02/18 01:03 10 mg ONETIME ONE Administration Sodium Chloride 10 ml 08/02/18 01:09 08/02/18 01:09 Saline Flush FLUSH 10 ml ASDIRECTED PRN Administration IV Use Departure - Departure Time of Disposition: 05:37 Disposition: Home, Self-Care 01 Condition: Good Clinical Impression: Tension-type headache - Discharge Information Instructions: Occipital Neuralgia Referrals: Robin Jimenez MD [Primary Care Provider] - Forms: ED Department Discharge Additional Instructions: Follow-up with neurologist. - Problem List & Annotations (1) Occipital neuralgia SNOMED Code(s): 79049820 Code(s): M54.81 - OCCIPITAL NEURALGIA Status: Acute (2) Tension headache SNOMED Code(s): 310889756 Code(s): G44.209 - TENSION-TYPE HEADACHE, UNSPECIFIED, NOT INTRACTABLE Status: Acute - Problem List Review Problem List Initiated/Reviewed/Updated: Yes - Assessment/Plan Plan: 1 L NS,along with IV Benadryl,Reglan and Dilaudid.DC home.
[2018-08-02] MEDS: Sodium Chloride 0.9% 10 ML Syringe FLUSH PRN (01:09)
[2018-08-02] MEDS: Sodium Chloride 0.9% 1,000 ML IV SCH (01:10)
[2018-08-02] MEDS: Metoclopramide 10 MG/2 ML SDV IVPUSH ONE (01:13)
[2018-08-02] MEDS: HYDROmorphone 2 MG/ML SDV IVPUSH ONE (01:15)
[2018-08-02] MEDS: diphenhydrAMINE 50 MG/ML SDV IVPUSH ONE (01:53)
[2018-08-02 02:15] VITALS: BP 117/65
== END 2018-08-02 02:13 | disposition home or self-care (01) ==
LOC: FB.ED 00:46
DX: G44.209 Tension-type headache, unspecified, not intractable (principal); F17.210 Nicotine dependence, cigarettes, uncomplicated; Z88.1 Allergy status to other antibiotic agents; Z79.899 Other long term (current) drug therapy
CPT/HCPCS: 96361; 96374; 96375; 99283; J1170; J1200; J2765; J7030

== ENCOUNTER 2018-08-02 20:56 | Emergency (ER) | payer MEDICARE ==
[2018-08-02] MEDS: Sodium Chloride 0.9% 10 ML Syringe FLUSH PRN (21:25)
--- NOTE | 2018-08-02 21:32 | EDM.PDOC ---
ED HPI GENERAL MEDICAL PROBLEM - General Chief Complaint: Headache Stated Complaint: NEURALGIA Time Seen by Provider: 08/02/18 21:11 Source of Information: Reports: Patient History Limitations: Reports: No Limitations - History of Present Illness INITIAL COMMENTS - FREE TEXT/NARRATIVE: 32-year-old female with long-standing history of migraine headaches and tension headaches following ependymomas and multiple surgeries for this. who has recently been diagnosed with occipital neuralgia and underwent steroid injections without any apparent relief. She reports for the past 10 days she has had recurrent severe pounding and throbbing headaches that are in her occipital area and bitemporal area and then seemed to radiate down her back. She has been followed by her neurologist and has had a workup which is included CT scan of her head and also an MRI of her head which showed no recurrence of tumor or other intracranial abnormality. She reports she has been seen in emergency departments 5 in the past 10 days with the most recent visit last night where she was seen by Dr. Olvier. She was given medications IV which included Dilaudid, Reglan and Benadryl with apparent relief of her headache. She reports that when she awoke at 1:30 PM today she had recurrence of her headache and it has progressively worsened since then. She states she has taken ibuprofen and Flexeril without any relief. She reports the pain as a 10/10. It is a throbbing, pounding headache that feels like a sledgehammer and radiates to her neck and in her upper back. She feels spasmy type pain as well in her neck and upper back. She has had no nausea associated with this but has had nausea and the past. She has no vision problems. But there is photophobia associated with this. She has had no fevers or chills. She's had no difficulty breathing. She's been able to drink liquids okay. She was supposed to follow-up with her neurologist but has been unable to do so thus far. There are no other associated signs or symptoms. There are no other modifying factors. 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 Headache Pain Score (Numeric/FACES): 10 - Related Data Allergies Allergy/AdvReac Type Severity Reaction Status Date / Time sumatriptan [From Imitrex] Allergy Rash Verified 08/02/18 21:02 Home Meds: Home Meds Butalb/Acetaminophen/Caffeine [Aelbmn-Sljbnaxu-Dipp 50-325-40] 1 tab PO TID 12/04 [History] Hydrocodone/Acetaminophen [Hydrocodon-Acetaminophn 10-325] 1 tab PO Q6HR PRN 12/04 [History] Ondansetron [Zofran ODT] 4 mg PO Q6HR PRN 07/24/18 [History] LORazepam [Ativan] 1 mg PO TID PRN #6 tablet 08/02/18 [Rx] Prochlorperazine [Compazine] 5 - 10 mg PO Q6H PRN #10 tablet 08/02/18 [Rx] Past Medical History Respiratory History: Reports: Other (See Below) Other Respiratory History: Current everyday smoker Gastrointestinal History: Reports: Cholelithiasis [employer] History: Reports: Spontaneous Neurological History: Reports: Headaches, Chronic, Migraines, Other (See Below) Other Neuro History: Ependymomas, occipital neuralgia Psychiatric History: Reports: Anxiety, Depression Oncologic (Cancer) History: Reports: Brain, Other (See Below) Other Oncologic History: ependymoma multiple resections in the past and chemotherapy in the past. - Past Surgical History Head Surgeries/Procedures: Reports: Craniotomy (For removal of tumors multiple times) GI Surgical History: Reports: Cholecystectomy, ERCP Social & Family History - Tobacco Use Smoking Status *Q: Current Every Day Smoker Years of Tobacco use: 15 Packs/Tins Daily: 0.4 - Caffeine Use Caffeine Use: Reports: Soda - Recreational Drug Use Recreational Drug Use: No - Living Situation & Occupation Social History Comment: She is here with her mother. ED ROS GENERAL - Review of Systems Review Of Systems: See Below Constitutional: Reports: No Symptoms HEENT: Reports: No Symptoms Respiratory: Reports: No Symptoms Cardiovascular: Reports: No Symptoms Endocrine: Reports: No Symptoms GI/Abdominal: Reports: No Symptoms : Reports: No Symptoms, Other (But has had decreased urine output) Musculoskeletal: Reports: Neck Pain, Back Pain (Upper back pain), Other (See history of present illness) Skin: Reports: No Symptoms Neurological: Reports: Headache Psychiatric: Reports: No Symptoms Hematologic/Lymphatic: Reports: No Symptoms Immunologic: Reports: No Symptoms - Physical Exam Exam: See Below Exam Limited By: No Limitations General Appearance: Alert, WD/WN, Moderate Distress, Other (Disheveled appearance) Eye Exam: Bilateral Eye: EOMI, Normal Inspection, PERRL, Other (Photophobia) Ears: Normal External Exam, Hearing Grossly Normal Nose: Normal Inspection, Normal Mucosa, No Blood Throat/Mouth: Normal Voice, No Airway Compromise, Other (Dry mucous membranes) Head Exam: Atraumatic, Normocephalic Neck: Normal Inspection, Full Range of Motion, Other (Some muscular spasm) Respiratory/Chest: No Respiratory Distress, Lungs Clear, Normal Breath Sounds, No Accessory Muscle Use, Chest Non-Tender Cardiovascular: Normal Peripheral Pulses, Regular Rate, Rhythm, No JVD GI/Abdominal: Normal Bowel Sounds, Soft, Non-Tender, No Organomegaly, No Mass Neuro Exam (Abbreviated): Alert, Oriented, CN II-XII Intact, No Motor/Sensory Deficits, Other (No pronator drift) Back Exam: Normal Inspection Extremities: Normal Inspection, Normal Range of Motion, Non-Tender, No Pedal Edema, Normal Capillary Refill Skin Exam: Warm, Dry, Intact, Normal Color, No Rash Course - Vital Signs Last Recorded V/S: Last Vital Signs Temp 36.7 C 08/02/18 21:00 Pulse 98 08/02/18 21:00 Resp 16 08/02/18 21:00 BP 119/79 08/02/18 21:00 Pulse Ox 98 08/02/18 21:00 - Orders/Labs/Meds Orders: Active Orders 24 hr Category Date Time Status Sodium Chloride 0.9% [Saline Flush] Med 08/02/18 21:19 Active 10 ml FLUSH ASDIRECTED PRN Peripheral IV Insertion Adult [OM.PC] Routine Oth 08/02/18 21:19 Ordered Medication Orders Sodium Chloride (Saline Flush) 10 ml FLUSH ASDIRECTED PRN PRN Reason: Keep Vein Open Last Admin: 08/02/18 21:25 Dose: 10 ml Meds: Medications Generic Name Dose Route Start Last Admin Trade Name Freq PRN Reason Stop Dose Admin Sodium Chloride 10 ml 08/02/18 21:19 08/02/18 21:25 Saline Flush FLUSH 10 ml ASDIRECTED PRN Administration Keep Vein Open Discontinued Medications Generic Name Dose Route Start Last Admin Trade Name Nicholasq PRN Reason Stop Dose Admin Diphenhydramine HCl 50 mg 08/02/18 21:20 08/02/18 21:36 Benadryl IVPUSH 08/02/18 21:21 50 mg ONETIME ONE Administration Haloperidol Lactate 2.5 mg 08/02/18 21:20 08/02/18 21:42 Haldol IV 08/02/18 21:21 2.5 mg ONETIME ONE Administration Sodium Chloride 500 mls @ 999 mls/hr 08/02/18 21:20 08/02/18 21:36 Normal Saline IV 08/02/18 21:50 999 mls/hr .BOLUS ONE Administration Lorazepam 1 mg 08/02/18 21:20 08/02/18 21:37 Ativan IVPUSH 08/02/18 21:21 1 mg ONETIME ONE Administration - Re-Assessments/Exams Free Text/Narrative Re-Assessment/Exam: 08/02/18 22:10: Patient has received IV normal saline 500 mL as a bolus, Benadryl 50 mg, Ativan 1 mg and Haldol 2.5 mg IV. She is much more relaxed and appears comfortable. She reports that her pain is a 7/10 but feels that it is improved and would like to go home at this point. I have stressed to the patient and the mother that they need to follow-up with the neurologist and they should plan on calling the office in the morning. I have given a prescription of Compazine and Ativan that she can take along with ibuprofen for these headaches. Departure - Departure Time of Disposition: 22:12 Disposition: Home, Self-Care 01 Condition: Good Clinical Impression: Recurrent occipital headache Occipital neuralgia Qualifiers: Laterality: unspecified laterality Qualified Code(s): M54.81 - Occipital neuralgia - Discharge Information Prescriptions: LORazepam [Ativan] 1 mg PO TID PRN #6 tablet PRN Reason: Neck muscle spasm/headache Prochlorperazine [Compazine] 5 - 10 mg PO Q6H PRN #10 tablet PRN Reason: Headache or nausea/vomiting Referrals: Robin Jimenez MD [Primary Care Provider] - Forms: ED Department Discharge Additional Instructions: You should call your neurologist's office tomorrow morning to arrange follow-up within the next 1-2 days. You should increase her fluid intake. Rest. Medication as prescribed (Compazine 5 mg, Ativan 1 mg). You may take these medications with ibuprofen for recurrence/worsening of her headache. Back to an emergency department for unrelenting vomiting, fever or any other concerning sign or symptom. - My Orders Last 24 Hours: My Active Orders 08/02/18 21:19 Sodium Chloride 0.9% [Saline Flush] 10 ml FLUSH ASDIRECTED PRN Peripheral IV Insertion Adult [OM.PC] Routine - Assessment/Plan Last 24 Hours: My Active Orders 08/02/18 21:19 Sodium Chloride 0.9% [Saline Flush] 10 ml FLUSH ASDIRECTED PRN Peripheral IV Insertion Adult [OM.PC] Routine
[2018-08-02] MEDS: Sodium Chloride 0.9% 500 ML IV ONE (21:36)
[2018-08-02] MEDS: diphenhydrAMINE 50 MG/ML SDV IVPUSH ONE (21:36)
[2018-08-02] MEDS: LORazepam 2 MG/ML SDV IVPUSH ONE (21:37)
[2018-08-02] MEDS: Haloperidol Lactate 5 MG/ML SDV IV ONE (21:42)
[2018-08-02 22:11] VITALS: BP 93/62
== END 2018-08-02 22:26 | disposition home or self-care (01) ==
LOC: FB.ED 20:56
DX: M54.81 Occipital neuralgia (principal); F17.210 Nicotine dependence, cigarettes, uncomplicated; F41.9 Anxiety disorder, unspecified; F32.9 Major depressive disorder, single episode, unspecified; Z79.899 Other long term (current) drug therapy; Z88.8 Allergy status to other drugs, medicaments and biological substances
CPT/HCPCS: 96361; 96374; 96375; 99283; J1200; J1630; J2060; J7040

== ENCOUNTER 2018-08-06 09:07 | Emergency (ER) | payer MEDICARE ==
[2018-08-06] MEDS ORDERED: HYDROmorphone 2 MG/ML SDV IM ONE (09:44)
[2018-08-06] MEDS ORDERED: Ondansetron 4 MG/2 ML SDV IM ONE (09:44)
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
[2018-08-06] MEDS ORDERED: Ketorolac 60 MG/2 ML SDV IM ONE (10:34)
[2018-08-06] MEDS ORDERED: Promethazine 25 MG/ML SDV IM ONE (10:35)
[2018-08-06 13:33] VITALS: BP 131/64
== END 2018-08-06 10:55 | disposition left against medical advice (07) ==
LOC: FB.ED 09:07
DX: S09.90XA Unspecified injury of head, initial encounter (principal); R40.2410 Glasgow coma scale score 13-15, unspecified time; F17.210 Nicotine dependence, cigarettes, uncomplicated; Z88.8 Allergy status to other drugs, medicaments and biological substances; Y04.2XXA Assault by strike against or bumped into by another person, initial encounter
CPT/HCPCS: 70450; 72125; 96372; 99283; 99284; J1170; J2405

== ENCOUNTER 2018-08-12 00:43 | Emergency (ER) | payer MEDICARE ==
[2018-08-12] MEDS ORDERED: Ketorolac 60 MG/2 ML SDV IM ONE (01:18)
[2018-08-12] MEDS ORDERED: Ondansetron 8 MG Tab.DIS PO ONE (01:18)
--- NOTE | 2018-08-12 01:20 | EDM.PDOC ---
ED HPI GENERAL MEDICAL PROBLEM - General Stated Complaint: MIGRAINE Time Seen by Provider: 08/12/18 00:43 Source of Information: Reports: Patient, Family History Limitations: Reports: No Limitations - History of Present Illness INITIAL COMMENTS - FREE TEXT/NARRATIVE: 32 y.o.w.f with a H/O Migraine Headache, frequent visits to this ED came to the ED with her mom because of N/V and bilateral temp headache, as she had in the past. No vision issues. Not the worst headache in her life. No trauma. 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 No SOB, no CP. No other acute med issues. BP 11/85 RR 18 Pulse ox 100% on RA Pulse 92 Temp 36.8 Onset Date: 08/11/18 Onset Time: 15:00 Duration: Hour(s):, Intermittent Location: Reports: Head Quality: Reports: Same as Previous Episode Severity: Moderate Improves with: Reports: Medication Context: Reports: Other Associated Symptoms: Reports: Nausea/Vomiting Treatments DISTILLING DEPARTMENT SUPERVISOR: Reports: Other (see below) (4 mg of sofran) - Related Data Allergies Allergy/AdvReac Type Severity Reaction Status Date / Time sumatriptan [From Imitrex] Allergy Rash Verified 08/12/18 07:33 Home Meds: Home Meds . [Unable to Verify Home Med List] 08/06/18 [History] Past Medical History Respiratory History: Reports: Other (See Below) Other Respiratory History: smoker 1 pack/day for 10 years. 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 - Past Surgical History Head Surgeries/Procedures: Reports: Craniotomy (For removal of tumors multiple times) GI Surgical History: Reports: Cholecystectomy, ERCP Neurological Surgical History: Reports: Other (See Below) (Occipital nerve block 07/31/18) Social & Family History - Family History Family Medical History: Noncontributory - Caffeine Use Caffeine Use: Reports: Coffee ED ROS GENERAL - Review of Systems Review Of Systems: See Below Constitutional: Reports: No Symptoms HEENT: Reports: No Symptoms Respiratory: Reports: No Symptoms Cardiovascular: Reports: No Symptoms Endocrine: Reports: No Symptoms GI/Abdominal: Reports: Nausea, Vomiting : Reports: No Symptoms Musculoskeletal: Reports: No Symptoms Skin: Reports: No Symptoms Neurological: Reports: No Symptoms Psychiatric: Reports: No Symptoms Hematologic/Lymphatic: Reports: No Symptoms Immunologic: Reports: No Symptoms - Physical Exam Exam: See Below Exam Limited By: No Limitations General Appearance: Alert, WD/WN, Moderate Distress Eye Exam: Bilateral Eye: Normal Inspection Ears: Normal External Exam Nose: Normal Inspection Throat/Mouth: Normal Inspection, Normal Lips, Normal Voice, No Airway Compromise Head Exam: Atraumatic, Normocephalic Neck: Normal Inspection, Supple, Non-Tender, Full Range of Motion Respiratory/Chest: No Respiratory Distress, Lungs Clear, Normal Breath Sounds Cardiovascular: Normal Peripheral Pulses, Regular Rate, Rhythm, No Edema GI/Abdominal: Normal Bowel Sounds, Soft, Non-Tender, No Organomegaly, Pelvis Stable (Female) Exam: Deferred Rectal (Female) Exam: Deferred Neuro Exam (Abbreviated): Alert, Oriented, CN II-XII Intact, Normal Cognition, Normal Gait Back Exam: Normal Inspection, Full Range of Motion Extremities: Normal Inspection, Normal Range of Motion, Non-Tender, No Pedal Edema Psychiatric: Normal Affect, Normal Mood Skin Exam: Warm, Dry, Intact, Normal Color, No Rash Course - Vital Signs Text/Narrative:: 32 y.o.w.f with a H/O Migraine Headache, frequent visits to this ED came to the ED with her mom because of N/V and bilateral temp headache, as she had in the past. No vision issues. Not the worst headache in her life. No trauma. 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 No SOB, no CP. No other acute med issues. BP 11/85 RR 18 Pulse ox 100% on RA Pulse 92 Temp 36.8 PE: WNWD W F with headache and nausea Imaging: Not indicated Labs: Not indicated Impression: Migraine H/F dehydration, N/V Tx: Zofran, Reglan, NS, Toradol, 0.5 mg Dilaudid Reexam: Pain and Nausea subsided 100% Plan: D/C with instruction. Last Recorded V/S: Last Vital Signs Temp 36.6 C 08/12/18 03:20 Pulse 81 08/12/18 03:53 Resp 18 04/27/19 03:53 BP 98/62 08/12/18 03:53 Pulse Ox 98 08/12/18 03:53 - Orders/Labs/Meds Meds: Medications Discontinued Medications Generic Name Dose Route Start Last Admin Trade Name Topher PRN Reason Stop Dose Admin Hydromorphone HCl 0.5 mg 08/12/18 03:30 08/12/18 03:39 Dilaudid IVPUSH 08/12/18 03:31 0.5 mg ONETIME ONE Administration Sodium Chloride 1,000 mls @ 999 mls/hr 08/12/18 02:34 08/12/18 02:30 Normal Saline IV 08/12/18 03:34 999 mls/hr .BOLUS ONE Administration Ketorolac Tromethamine 60 mg 08/12/18 01:18 08/12/18 01:30 Toradol IM 08/12/18 01:19 60 mg ONETIME ONE Administration Metoclopramide HCl 10 mg 08/12/18 03:16 08/12/18 03:20 Reglan IVPUSH 08/12/18 03:17 10 mg ONETIME ONE Administration Ondansetron HCl 8 mg 08/12/18 01:18 08/12/18 06:54 Zofran Odt PO 08/12/18 01:19 Not Given ONETIME ONE Ondansetron HCl 4 mg 08/12/18 02:32 08/12/18 07:35 Zofran Odt PO 08/12/18 02:33 Not Given ONETIME STA Ondansetron HCl Confirm 08/12/18 02:49 08/12/18 02:50 Zofran Administered 08/12/18 02:50 4 mg Dose Administration 4 mg .ROUTE .STK-MED ONE Departure - Departure Time of Disposition: 03:49 Disposition: Home, Self-Care 01 Condition: Good Clinical Impression: Dehydration Migraine Qualifiers: Migraine type: without aura Status migrainosus presence: without status migrainosus Intractability: not intractable Qualified Code(s): G43.009 - Migraine without aura, not intractable, without status migrainosus - Discharge Information Instructions: Migraine Headache, [place] Referrals: Robin Jimenez MD [Primary Care Provider] - Forms: ED Department Discharge Additional Instructions: Please cont your current meds, please f/u, please come back if your symptoms get worse acutely
[2018-08-12] MEDS ORDERED: Ondansetron 4 MG Tab.DIS PO STA (02:32)
[2018-08-12] MEDS ORDERED: Sodium Chloride 0.9% 1,000 ML IV ONE (02:34)
[2018-08-12] MEDS ORDERED: Ondansetron 4 MG/2 ML SDV ONE (02:49)
[2018-08-12] MEDS ORDERED: Ondansetron 4 MG/2 ML SDV IVPUSH ONE (02:50)
[2018-08-12] MEDS ORDERED: Metoclopramide 10 MG/2 ML SDV IVPUSH ONE (03:16)
[2018-08-12] MEDS ORDERED: HYDROmorphone 2 MG/ML SDV IVPUSH ONE (03:30)
[2018-08-12 06:57] VITALS: BP 98/62
== END 2018-08-12 03:55 | disposition home or self-care (01) ==
LOC: FB.ED 00:43
DX: G43.009 Migraine without aura, not intractable, without status migrainosus (principal); E86.0 Dehydration; R11.2 Nausea with vomiting, unspecified; Z88.8 Allergy status to other drugs, medicaments and biological substances
CPT/HCPCS: 96361; 96372; 96374; 96375; 99283; J1170; J1885; J2405; J2765; J7030

== ENCOUNTER 2019-05-08 20:46 | Emergency (ER) | payer MEDICARE ==
[2019-05-08] MEDS ORDERED: Acetaminophen/oxyCODONE 325-5 MG Tab PO PRN (21:02)
[2019-05-08] MEDS ORDERED: Ondansetron 4 MG Tab.DIS PO ONE (21:02)
[2019-05-08] MEDS ORDERED: Ketorolac 60 MG/2 ML SDV IM ONE (21:02)
[2019-05-08 21:06] VITALS: BP 139/87; PULSE 84
[2019-05-08] MEDS ORDERED: hydrOXYzine HCl 50 MG/ML SDV IM ONE (21:26)
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
== END 2019-05-08 21:55 | disposition home or self-care (01) ==
LOC: FB.ED 20:46
DX: G43.009 Migraine without aura, not intractable, without status migrainosus (principal); F17.210 Nicotine dependence, cigarettes, uncomplicated; Z88.8 Allergy status to other drugs, medicaments and biological substances
CPT/HCPCS: 96372; 99283; 99284-25; A9270-GY; J1885; J3410

== ENCOUNTER 2019-07-13 18:46 | Emergency (ER) | payer MEDICARE ==
[2019-07-13 20:17] VITALS: BP 114/62; PULSE 117
== END 2019-07-13 20:10 | disposition left against medical advice (07) ==
LOC: FB.ED 18:46
DX: Z53.21 Procedure and treatment not carried out due to patient leaving prior to being seen by health care provider (principal)

== ENCOUNTER 2019-07-13 22:31 | Emergency (ER) | payer MEDICARE ==
[2019-07-13] MEDS ORDERED: diphenhydrAMINE 50 MG/ML SDV IM ONE (22:43)
[2019-07-13] MEDS ORDERED: Ketorolac 60 MG/2 ML SDV IM ONE (22:45)
[2019-07-13] MEDS ORDERED: Ondansetron 4 MG/2 ML SDV IM ONE (22:47)
[2019-07-13] MEDS ORDERED: Sodium Chloride 0.9% 1,000 ML IV SCH (23:45)
--- NOTE | 2019-07-14 00:04 | EDM.PDOC ---
ED HPI GENERAL MEDICAL PROBLEM - General Chief Complaint: Headache Stated Complaint: migraine Time Seen by Provider: 07/13/19 22:35 Source of Information: Reports: Patient History Limitations: Reports: No Limitations - History of Present Illness INITIAL COMMENTS - FREE TEXT/NARRATIVE: has had migraines headache since about 2pm yesterday same as usual migraine headaches , in the frontal area like a band , has been nauseated but did not vomit but requiring more medications was in this afternoon , left without being seen ( ER was full of other pts) and now returned with same headache last she was in, hydrocodone was added , pt requesting for hydrocodone pt would prefer not to have hydrocodone once I told her it was a narcotic Onset: Gradual Onset Date: 07/13/19 Onset Time: 14:00 Duration: Getting Worse Location: Reports: Head Quality: Reports: Ache, Dull, Pressure, Stabbing Severity: Moderate Improves with: Reports: Cold Therapy Worsens with: Reports: Movement Associated Symptoms: Reports: Malaise, Nausea/Vomiting Treatments MANAGER SERVICES: Reports: Other (see below) (ususall Excedrin migraine would relieve symptoms but did not this time) - Related Data Allergies Allergy/AdvReac Type Severity Reaction Status Date / Time fluoxetine [From Prozac] Allergy Hives Verified 07/13/19 23:09 pegfilgrastim [From Neulasta] Allergy Hives Verified 07/13/19 23:09 sumatriptan [From Imitrex] Allergy See Comment Verified 07/13/19 23:07 seasonal Allergy Itchy Eyes Uncoded 07/13/19 23:08 Home Meds: Home Meds Erenumab-Aooe [Aimovig Autoinjector] 1 injection SQ Q30D 07/13/19 [History] Past Medical History Respiratory History: Reports: Other (See Below) Other Respiratory History: Smoker. 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 Psychiatric History: Reports: Anxiety, Depression Oncologic (Cancer) History: Reports: Brain, Other (See Below) Other Oncologic History: Ependymoma multiple resections in the past and chemotherapy in the past. - Past Surgical History Head Surgeries/Procedures: Reports: Craniotomy GI Surgical History: Reports: Cholecystectomy, ERCP Neurological Surgical History: Reports: Other (See Below) Other Neurological Surgeries/Procedures: Surgery with brain tumor: 1998, 2000, 2003. Social & Family History - Family History Family Medical History: Noncontributory - Tobacco Use Smoking Status *Q: Current Every Day Smoker Years of Tobacco use: 20 Packs/Tins Daily: 0.5 - Caffeine Use Caffeine Use: Reports: Coffee ED ROS GENERAL - Review of Systems Review Of Systems: Comprehensive ROS is negative, except as noted in HPI. - Physical Exam Exam: See Below Exam Limited By: No Limitations General Appearance: Alert, WD/WN, No Apparent Distress Eye Exam: Bilateral Eye: EOMI Ears: Normal External Exam, Normal Canal Nose: Normal Inspection, Normal Mucosa Throat/Mouth: Normal Lips, Normal Oropharynx Head Exam: Atraumatic, Normocephalic Neck: Supple, Non-Tender Respiratory/Chest: No Respiratory Distress, Lungs Clear, Normal Breath Sounds Cardiovascular: Normal Peripheral Pulses, Regular Rate, Rhythm, No Edema Neuro Exam (Abbreviated): Alert, Oriented, CN II-XII Intact, Normal Reflexes, No Motor/Sensory Deficits Back Exam: Normal Inspection Extremities: Normal Range of Motion Psychiatric: Normal Affect Skin Exam: Warm, Dry Course - Vital Signs Last Recorded V/S: Last Vital Signs Temp 37.1 C 07/14/19 00:45 Pulse 72 07/14/19 00:45 Resp 18 07/14/19 00:45 BP 116/49 L 07/14/19 00:45 Pulse Ox 100 07/14/19 00:45 - Orders/Labs/Meds Meds: Medications Discontinued Medications Generic Name Dose Route Start Last Admin Trade Name Topher PRN Reason Stop Dose Admin Diphenhydramine HCl 50 mg 07/13/19 22:43 07/13/19 22:59 Benadryl IM 07/13/19 22:44 50 mg ONETIME ONE Administration Hydroxyzine HCl 50 mg 07/14/19 00:14 07/14/19 00:21 Vistaril IM 07/14/19 00:15 50 mg ONETIME ONE Administration Sodium Chloride 1,000 mls @ 999 mls/hr 07/13/19 23:45 07/14/19 00:05 Normal Saline IV 999 mls/hr ASDIRECTED DEMETRICE Administration Ketorolac Tromethamine 60 mg 07/13/19 22:45 07/13/19 22:58 Toradol IM 07/13/19 22:46 60 mg ONETIME ONE Administration Ondansetron HCl 4 mg 07/13/19 22:47 07/13/19 22:59 Zofran IM 07/13/19 22:48 4 mg ONETIME ONE Administration - Re-Assessments/Exams Free Text/Narrative Re-Assessment/Exam: 07/14/19 06:32 pt was given Benadryl , zofran and toradol , did not relieve symptoms then she requested hydrocodone , then decided not to have I gave her vistaril instead with IVF and this seemed to help Departure - Departure Time of Disposition: 00:55 Disposition: Home, Self-Care 01 Condition: Good Clinical Impression: Migraine Qualifiers: Migraine type: without aura Status migrainosus presence: without status migrainosus Intractability: not intractable Qualified Code(s): G43.009 - Migraine without aura, not intractable, without status migrainosus - Discharge Information *PRESCRIPTION DRUG MONITORING PROGRAM REVIEWED*: Not Applicable *COPY OF PRESCRIPTION DRUG MONITORING REPORT IN PATIENT [place]: Not Applicable Instructions: Migraine Headache Referrals: Robin Jimenez MD [Primary Care Provider] - Forms: ED Department Discharge Care Plan Goals: Rest, drink plenty of fluids. Follow up as needed. Sepsis Event Note - Evaluation Sepsis Screening Result: No Definite Risk - Focused Exam Vital Signs: Vital Signs Temp Pulse Resp BP Pulse Ox 07/14/19 00:45 37.1 C 72 18 116/49 L 100 07/13/19 22:40 37.3 C 106 H 18 139/66 99 Date Exam was Performed: 07/14/19 Time Exam was Performed: 06:35
[2019-07-14] MEDS ORDERED: hydrOXYzine HCl 50 MG/ML SDV IM ONE (00:14)
[2019-07-14 01:50] VITALS: BP 116/49; PULSE 72
== END 2019-07-14 00:55 | disposition home or self-care (01) ==
LOC: FB.ED 22:31
DX: G43.009 Migraine without aura, not intractable, without status migrainosus (principal); F17.210 Nicotine dependence, cigarettes, uncomplicated; Z88.1 Allergy status to other antibiotic agents; Z88.8 Allergy status to other drugs, medicaments and biological substances
CPT/HCPCS: 96360; 96372; 99283; J1200; J1885; J2405; J3410; J7030; 99284

== ENCOUNTER 2019-09-02 09:12 | Emergency (ER) | payer MEDICARE ==
[2019-09-02 09:23] VITALS: BP 110/68; PULSE 64
[2019-09-02] MEDS ORDERED: Sodium Chloride 0.9% 1,000 ML IV ONE (09:39)
[2019-09-02] MEDS ORDERED: Sodium Chloride 0.9% 10 ML Syringe FLUSH PRN (09:39)
[2019-09-02] MEDS ORDERED: Ketorolac 30 MG/ML SDV IVPUSH ONE (09:39)
[2019-09-02] MEDS ORDERED: Prochlorperazine 10 MG/2 ML SDV IVPUSH ONE (09:40)
[2019-09-02] MEDS ORDERED: diphenhydrAMINE 50 MG/ML SDV IVPUSH ONE (09:40)
--- NOTE | 2019-09-02 09:44 | EDM.PDOC ---
ED HPI GENERAL MEDICAL PROBLEM - General Chief Complaint: Headache Stated Complaint: MIGRAINE Time Seen by Provider: 09/02/19 09:40 Source of Information: Reports: Patient History Limitations: Reports: No Limitations - History of Present Illness INITIAL COMMENTS - FREE TEXT/NARRATIVE: Presents with a typical migraine since last night localized to forehead and temples bilaterally, associated with N/V and photophobia, per usual. She denies injury or alcohol use. Onset Date: 09/01/19 Location: Reports: Head Quality: Reports: Ache Severity: Severe Improves with: Reports: None Worsens with: Reports: None Treatments PROJ ENGINEER: Reports: NSAIDS Headache Pain Score (Numeric/FACES): 7 - Related Data Allergies Allergy/AdvReac Type Severity Reaction Status Date / Time fluoxetine [From Prozac] Allergy Hives Verified 09/02/19 09:23 pegfilgrastim [From Neulasta] Allergy Hives Verified 09/02/19 09:23 sumatriptan [From Imitrex] Allergy See Comment Verified 09/02/19 09:23 seasonal Allergy Itchy Eyes Uncoded 07/13/19 23:08 Home Meds: Home Meds Erenumab-Aooe [Aimovig Autoinjector] 1 injection SQ Q30D 07/13/19 [History] Past Medical History Respiratory History: Reports: Other (See Below) Other Respiratory History: Smoker. 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 Psychiatric History: Reports: Anxiety, Depression Oncologic (Cancer) History: Reports: Brain, Other (See Below) Other Oncologic History: Ependymoma multiple resections in the past and chemotherapy in the past. - Past Surgical History Head Surgeries/Procedures: Reports: Craniotomy GI Surgical History: Reports: Cholecystectomy, ERCP Neurological Surgical History: Reports: Other (See Below) Other Neurological Surgeries/Procedures: Surgery with brain tumor: 1998, 2000, 2003. Social & Family History - Family History Family Medical History: Noncontributory - Tobacco Use Smoking Status *Q: Current Every Day Smoker Tobacco Use Within Last Twelve Months: Cigarettes Years of Tobacco use: 15 Packs/Tins Daily: 0.5 - Caffeine Use Caffeine Use: Reports: None - Recreational Drug Use Recreational Drug Use: No ED ROS GENERAL - Review of Systems Review Of Systems: Comprehensive ROS is negative, except as noted in HPI. - Physical Exam Exam: See Below Exam Limited By: No Limitations General Appearance: Alert, WD/WN, Mild Distress Eye Exam: Bilateral Eye: EOMI, PERRL Nose: Normal Inspection Throat/Mouth: No Airway Compromise Head Exam: Atraumatic, Normocephalic Neck: Supple Respiratory/Chest: No Respiratory Distress, Lungs Clear, Normal Breath Sounds Cardiovascular: Regular Rate, Rhythm Neuro Exam (Abbreviated): Alert, Oriented, Normal Cognition Extremities: Normal Inspection, Normal Range of Motion Skin Exam: Warm, Dry, Intact Course - Vital Signs Last Recorded V/S: Last Vital Signs Temp 36.3 C 09/02/19 09:20 Pulse 64 09/02/19 09:20 Resp 16 09/02/19 09:20 BP 110/68 09/02/19 09:20 Pulse Ox 100 09/02/19 09:20 - Orders/Labs/Meds Orders: Active Orders 24 hr Category Date Time Status Sodium Chloride 0.9% [Saline Flush] Med 09/02/19 09:39 Active 10 ml FLUSH ASDIRECTED PRN Saline Lock Insert [OM.PC] Routine Oth 09/02/19 09:39 Ordered Medication Orders Sodium Chloride (Saline Flush) 10 ml FLUSH ASDIRECTED PRN PRN Reason: Keep Vein Open Meds: Medications Generic Name Dose Route Start Last Admin Trade Name Freq PRN Reason Stop Dose Admin Sodium Chloride 10 ml 09/02/19 09:39 Saline Flush FLUSH ASDIRECTED PRN Keep Vein Open Discontinued Medications Generic Name Dose Route Start Last Admin Trade Name Freq PRN Reason Stop Dose Admin Diphenhydramine HCl 25 mg 09/02/19 09:40 09/02/19 10:05 Benadryl IVPUSH 09/02/19 09:41 25 mg ONETIME ONE Administration Hydromorphone HCl 0.5 mg 09/02/19 10:34 09/02/19 10:50 Dilaudid IVPUSH 09/02/19 10:35 0.5 mg ONETIME ONE Administration Sodium Chloride 1,000 mls @ 999 mls/hr 09/02/19 09:39 09/02/19 10:02 Normal Saline IV 09/02/19 10:39 999 mls/hr .BOLUS ONE Administration Ketorolac Tromethamine 30 mg 09/02/19 09:39 09/02/19 10:05 Toradol IVPUSH 09/02/19 09:40 30 mg ONETIME ONE Administration Prochlorperazine Edisylate 10 mg 09/02/19 09:40 09/02/19 10:04 Compazine IVPUSH 09/02/19 09:41 10 mg ONETIME ONE Administration - Re-Assessments/Exams Free Text/Narrative Re-Assessment/Exam: 09/02/19 11:04 Symptoms improved after IVF and meds. Departure - Departure Time of Disposition: 11:04 Disposition: Home, Self-Care 01 Condition: Good Clinical Impression: Migraine Qualifiers: Migraine type: without aura Status migrainosus presence: without status migrainosus Intractability: not intractable Qualified Code(s): G43.009 - Migraine without aura, not intractable, without status migrainosus - Discharge Information *PRESCRIPTION DRUG MONITORING PROGRAM REVIEWED*: Yes *COPY OF PRESCRIPTION DRUG MONITORING REPORT IN PATIENT [place]: No Instructions: Migraine Headache, [id number] Referrals: Robin Jimenez MD [Primary Care Provider] - Forms: ED Department Discharge Additional Instructions: Rest, fluids. Follow up as needed. Sepsis Event Note - Evaluation Sepsis Screening Result: No Definite Risk - Focused Exam Vital Signs: Vital Signs Temp Pulse Resp BP Pulse Ox 09/02/19 09:20 36.3 C 64 16 110/68 100 Date Exam was Performed: 09/02/19 Time Exam was Performed: 11:04 - My Orders Last 24 Hours: My Active Orders 09/02/19 09:39 Sodium Chloride 0.9% [Saline Flush] 10 ml FLUSH ASDIRECTED PRN Saline Lock Insert [OM.PC] Routine - Assessment/Plan Last 24 Hours: My Active Orders 09/02/19 09:39 Sodium Chloride 0.9% [Saline Flush] 10 ml FLUSH ASDIRECTED PRN Saline Lock Insert [OM.PC] Routine
[2019-09-02] MEDS ORDERED: HYDROmorphone 2 MG/ML SDV IVPUSH ONE (10:34)
== END 2019-09-02 11:20 | disposition home or self-care (01) ==
LOC: FB.ED 09:12
DX: G43.009 Migraine without aura, not intractable, without status migrainosus (principal); F17.210 Nicotine dependence, cigarettes, uncomplicated; Z88.8 Allergy status to other drugs, medicaments and biological substances; Z91.018 Allergy to other foods
CPT/HCPCS: 96361; 96374; 96375; 99283; 99284; J0780; J1170; J1200; J1885; J7030

== ENCOUNTER 2019-12-12 01:12 | Emergency (ER) | payer MEDICARE ==
[2019-12-12] MEDS ORDERED: Acetaminophen/HYDROcodone 325-5 MG Tab PO STA (01:27)
[2019-12-12] MEDS ORDERED: Ondansetron 4 MG Tab.DIS PO STA (01:27)
--- NOTE | 2019-12-12 01:50 | EDM.PDOC ---
ED HPI GENERAL MEDICAL PROBLEM - General Chief Complaint: Headache Stated Complaint: MIGRAINE Time Seen by Provider: 12/12/19 01:30 Source of Information: Reports: Patient History Limitations: Reports: No Limitations - History of Present Illness INITIAL COMMENTS - FREE TEXT/NARRATIVE: Patient presented to the ED because of a head injury. She hit her head against the beam last night and now c/o severe headache over the parietal area. the pain is 10/10 with associated nausea and vomiting. She has a h/o migraine which made it worse. - Related Data Allergies Allergy/AdvReac Type Severity Reaction Status Date / Time fluoxetine [From Prozac] Allergy Hives Verified 12/12/19 01:30 pegfilgrastim [From Neulasta] Allergy Hives Verified 12/12/19 01:30 sumatriptan [From Imitrex] Allergy See Comment Verified 12/12/19 01:30 seasonal Allergy Itchy Eyes Uncoded 07/13/19 23:08 Home Meds: Home Meds Acetaminophen/HYDROcodone [Elim 325-5 MG] 1 - 2 tab PO Q4H PRN #10 tab 12/12/19 [Rx] Ondansetron [Zofran ODT] 4 mg PO Q4H PRN #7 tab.dis 12/12/19 [Rx] Past Medical History Respiratory History: Reports: Other (See Below) Other Respiratory History: Smoker. 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 Psychiatric History: Reports: Anxiety, Depression Oncologic (Cancer) History: Reports: Brain, Other (See Below) Other Oncologic History: Ependymoma multiple resections in the past and chemotherapy in the past. - Past Surgical History Head Surgeries/Procedures: Reports: Craniotomy GI Surgical History: Reports: Cholecystectomy, ERCP Neurological Surgical History: Reports: Other (See Below) Other Neurological Surgeries/Procedures: Surgery with brain tumor: 1998, 2000, 2003. Social & Family History - Family History Family Medical History: Noncontributory - Caffeine Use Caffeine Use: Reports: None ED ROS GENERAL - Review of Systems Review Of Systems: See Below Constitutional: Reports: No Symptoms HEENT: Reports: No Symptoms Respiratory: Reports: No Symptoms Cardiovascular: Reports: No Symptoms Endocrine: Reports: No Symptoms GI/Abdominal: Reports: Nausea, Vomiting : Reports: No Symptoms Musculoskeletal: Reports: No Symptoms Skin: Reports: No Symptoms Neurological: Reports: No Symptoms, Headache ED EXAM, HEAD INJURY - Physical Exam Exam: See Below Exam Limited By: No Limitations General Appearance: Alert, No Apparent Distress Head: Atraumatic, Normocephalic Eyes: Bilateral Eye: PERRL Ears: Normal External Exam, Normal Canal, Hearing Grossly Normal Nose: Normal Inspection, Normal Mucousa, No Blood Throat/Mouth: Normal Inspection, Normal Lips, Normal Teeth Neck: Non-Tender, Full Range of Motion, Normal Alignment, Normal Inspection Respiratory: No Respiratory Distress, Lungs Clear, Normal Breath Sounds, No Accessory Muscle Use, Chest Non-Tender Cardiovascular: Normal Peripheral Pulses, Regular Rate, Rhythm, No Edema, No Gallop GI/Abdominal Exam: Normal Bowel Sounds, Soft, Non-Tender, No Organomegaly Back Exam: Normal Inspection, Full Range of Motion Extremities: Normal Inspection, Normal Range of Motion, Non-Tender Skin: Normal Color, Warm/Dry Course - Vital Signs Text/Narrative:: Headt CT- Zofran ODT 4 mg po x1 Elim 5/325, 2 po x1 Last Recorded V/S: Last Vital Signs Temp 36.9 C 12/12/19 01:15 Pulse 108 H 12/12/19 01:15 Resp 18 12/12/19 01:15 BP 134/77 12/12/19 01:15 Pulse Ox 97 12/12/19 01:15 - Orders/Labs/Meds Orders: Active Orders 24 hr Category Date Time Status Head wo Cont [CT] Stat Exams 12/12/19 01:26 Taken Meds: Medications Discontinued Medications Generic Name Dose Route Start Last Admin Trade Name Topher PRN Reason Stop Dose Admin Hydrocodone Bitart/Acetaminophen 2 tab 12/12/19 01:27 12/12/19 01:35 Elim 325-5 Mg PO 12/12/19 01:28 2 tab NOW STA Administration Ondansetron HCl 4 mg 12/12/19 01:27 12/12/19 01:35 Zofran Odt PO 12/12/19 01:28 4 mg NOW STA Administration Departure - Departure Time of Disposition: 02:15 Disposition: Home, Self-Care 01 Condition: Good Clinical Impression: Head injury Migraine Qualifiers: Migraine type: without aura Status migrainosus presence: without status migrainosus Intractability: not intractable Qualified Code(s): G43.009 - Migraine without aura, not intractable, without status migrainosus - Discharge Information Prescriptions: Acetaminophen/HYDROcodone [Elim 325-5 MG] 1 - 2 tab PO Q4H PRN #10 tab PRN Reason: Pain Ondansetron [Zofran ODT] 4 mg PO Q4H PRN #7 tab.dis PRN Reason: Pain Instructions: Head Injury, Adult, Migraine Headache Referrals: PCP,None [Primary Care Provider] - Forms: ED Department Discharge Additional Instructions: Ashley read discharge instructions on head injury Zofran ODT 4 mg every 4 hours as needed for headache Take ibuprofen 800 mg with tylenol 1000 mg every 8 hours as needed for pain Elim 5/325,take 1-2 tablets every 4-6 hours as needed for pain Follow up as needed Sepsis Event Note (ED) - Focused Exam Vital Signs: Vital Signs Temp Pulse Resp BP Pulse Ox 12/12/19 01:15 36.9 C 108 H 18 134/77 97 - My Orders Last 24 Hours: My Active Orders 12/12/19 01:26 Head wo Cont [CT] Stat - Assessment/Plan Last 24 Hours: My Active Orders 12/12/19 01:26 Head wo Cont [CT] Stat
[2019-12-12 02:11] VITALS: BP 134/77; PULSE 108
== END 2019-12-12 02:17 | disposition home or self-care (01) ==
LOC: FB.ED 01:12
DX: S09.90XA Unspecified injury of head, initial encounter (principal); G43.009 Migraine without aura, not intractable, without status migrainosus; F17.200 Nicotine dependence, unspecified, uncomplicated; Z88.8 Allergy status to other drugs, medicaments and biological substances; Z90.49 Acquired absence of other specified parts of digestive tract; W22.8XXA Striking against or struck by other objects, initial encounter
CPT/HCPCS: 70450; 99284-25; A9270-GY

== ENCOUNTER 2020-04-13 20:48 | Emergency (ER) | payer MEDICARE ==
[2020-04-13 21:11] VITALS: BP 130/75; PULSE 87
--- NOTE | 2020-04-13 21:12 | EDM.PDOC ---
ED HPI GENERAL MEDICAL PROBLEM - General Chief Complaint: Headache Stated Complaint: HEADACHE Time Seen by Provider: 04/13/20 21:00 Source of Information: Reports: Patient History Limitations: Reports: No Limitations - History of Present Illness INITIAL COMMENTS - FREE TEXT/NARRATIVE: pt presents with migraine headache , since this am usually has migraine and this is no change from the usual same location , frontal with nausea , no vomiting and has photophobia Onset: Today Onset Date: 04/13/20 Duration: Getting Worse Location: Reports: Head Quality: Reports: Ache, Dull Severity: Moderate Improves with: Reports: None Worsens with: Reports: Movement Context: Reports: Activity Associated Symptoms: Reports: Loss of Appetite, Nausea/Vomiting 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) Headache Pain Score (Numeric/FACES): 8 - Related Data Allergies Allergy/AdvReac Type Severity Reaction Status Date / Time fluoxetine [From Prozac] Allergy Hives Verified 12/12/19 01:30 pegfilgrastim [From Neulasta] Allergy Hives Verified 12/12/19 01:30 sumatriptan [From Imitrex] Allergy See Comment Verified 12/12/19 01:30 seasonal Allergy Itchy Eyes Uncoded 07/13/19 23:08 Home Meds: Home Meds Acetaminophen/HYDROcodone [[place] 325-5 MG] 1 - 2 tab PO Q4H PRN #10 tab 12/12/19 [Rx] Ondansetron [Zofran ODT] 4 mg PO Q4H PRN #7 tab.dis 12/12/19 [Rx] Past Medical History Respiratory History: Reports: Other (See Below) Other Respiratory History: Smoker. 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 Psychiatric History: Reports: Anxiety, Depression Oncologic (Cancer) History: Reports: Brain, Other (See Below) Other Oncologic History: Ependymoma multiple resections in the past and chemotherapy in the past. - Past Surgical History Head Surgeries/Procedures: Reports: Craniotomy GI Surgical History: Reports: Cholecystectomy, ERCP Neurological Surgical History: Reports: Other (See Below) Other Neurological Surgeries/Procedures: Surgery with brain tumor: 1998, 2000, 2003. Social & Family History - Family History Family Medical History: No Pertinent Family History - Caffeine Use Caffeine Use: Reports: None ED ROS GENERAL - Review of Systems Review Of Systems: Comprehensive ROS is negative, except as noted in HPI. Constitutional: Reports: No Symptoms HEENT: Reports: No Symptoms Respiratory: Reports: No Symptoms Cardiovascular: Reports: No Symptoms Endocrine: Reports: No Symptoms - Physical Exam Exam: See Below Exam Limited By: No Limitations General Appearance: Alert, WD/WN, No Apparent Distress Eye Exam: Bilateral Eye: EOMI Ears: Normal External Exam Nose: Normal Inspection, Normal Mucosa Throat/Mouth: Normal Oropharynx Head Exam: Atraumatic, Normocephalic Neck: Normal Inspection, Supple, Non-Tender Respiratory/Chest: No Respiratory Distress, Lungs Clear Cardiovascular: Normal Peripheral Pulses, Regular Rate, Rhythm GI/Abdominal: Soft, Non-Tender Neuro Exam (Abbreviated): Alert, Oriented, CN II-XII Intact, Normal Cognition, Normal Gait Back Exam: Normal Inspection, Decreased Range of Motion Extremities: Normal Inspection Psychiatric: Normal Affect, Normal Mood Skin Exam: Warm, Dry, Intact Course - Vital Signs Last Recorded V/S: Last Vital Signs Temp 36.8 C 04/13/20 21:09 Pulse 87 04/13/20 21:09 Resp 16 04/13/20 21:09 BP 130/75 04/13/20 21:09 Pulse Ox 99 04/13/20 21:09 - Orders/Labs/Meds Meds: Medications Discontinued Medications Generic Name Dose Route Start Last Admin Trade Name Freq PRN Reason Stop Dose Admin Diphenhydramine HCl 50 mg 04/13/20 21:05 04/13/20 21:23 Benadryl IM 04/13/20 21:06 50 mg ONETIME ONE Administration Ketorolac Tromethamine 60 mg 04/13/20 21:07 04/13/20 21:23 Toradol IM 04/13/20 21:08 60 mg ONETIME ONE Administration Ondansetron HCl 4 mg 04/13/20 21:05 04/13/20 21:22 Zofran IM 04/13/20 21:06 4 mg ONETIME ONE Administration - Re-Assessments/Exams Free Text/Narrative Re-Assessment/Exam: 04/13/20 21:11 pt given im benadryl zofran and toradol Departure - Departure Time of Disposition: 22:45 Disposition: Home, Self-Care 01 Condition: Fair Clinical Impression: Recurrent occipital headache, Tension-type headache Migraine Qualifiers: Migraine type: without aura Status migrainosus presence: without status migrainosus Intractability: not intractable Qualified Code(s): G43.009 - Migraine without aura, not intractable, without status migrainosus - Discharge Information *PRESCRIPTION DRUG MONITORING PROGRAM REVIEWED*: Not Applicable *COPY OF PRESCRIPTION DRUG MONITORING REPORT IN PATIENT [place]: Not Applicable Instructions: Migraine Headache, [id number] Referrals: PCP,None [Primary Care Provider] - Forms: ED Department Discharge Additional Instructions: 1) continue with home medications 2) Follow up with your PCP as needed
[2020-04-13] MEDS: Ondansetron 4 MG/2 ML SDV IM ONE (21:22)
[2020-04-13] MEDS: diphenhydrAMINE 50 MG/ML SDV IM ONE (21:23)
[2020-04-13] MEDS: Ketorolac 60 MG/2 ML SDV IM ONE (21:23)
== END 2020-04-13 21:34 | disposition home or self-care (01) ==
LOC: FB.ED 20:48
DX: G43.009 Migraine without aura, not intractable, without status migrainosus (principal); G44.209 Tension-type headache, unspecified, not intractable; F17.200 Nicotine dependence, unspecified, uncomplicated; Z88.8 Allergy status to other drugs, medicaments and biological substances; Z91.048 Other nonmedicinal substance allergy status
CPT/HCPCS: 96372; 99283; J1200; J1885; J2405

== ENCOUNTER 2023-01-02 13:31 | Emergency (ER) | payer MEDICARE ==
[2023-01-02 13:55] VITALS: BP 129/78; PULSE 95
[2023-01-02] MEDS ORDERED: Dihydroergotamine 1 MG/ML SDV IVPUSH ONE (14:07)
[2023-01-02] MEDS ORDERED: diphenhydrAMINE 50 MG/ML SDV IVPUSH ONE (14:08)
[2023-01-02] MEDS ORDERED: Prochlorperazine 10 MG in Sodium Chloride 0.9% 50 ML IV ONE (14:08)
[2023-01-02] MEDS ORDERED: Sodium Chloride 0.9% 1,000 ML IV STA (14:08)
== END 2023-01-02 14:18 | disposition left against medical advice (07) ==
LOC: FB.ED 13:31
DX: G43.909 Migraine, unspecified, not intractable, without status migrainosus (principal); F17.200 Nicotine dependence, unspecified, uncomplicated; Z88.1 Allergy status to other antibiotic agents; Z88.8 Allergy status to other drugs, medicaments and biological substances; Z91.048 Other nonmedicinal substance allergy status; Z79.899 Other long term (current) drug therapy
CPT/HCPCS: 99283